=== PATIENT | male | born 1970 ===

== ENCOUNTER 2020-04-18 12:45 | Emergency (ER) | payer OTHER, SELFPAY ==
[2020-04-18 13:13] VITALS: BP 98/66; PULSE 99; RESP 20; TEMP 37.1; O2SAT 96; BMI 26.6
--- NOTE | 2020-04-18 14:59 | XR_ITS ---
EXAMINATION: XR CHEST CLINICAL INFORMATION: Cough, shortness of breath COMPARISON: Chest radiograph from 12/23/2007 TECHNIQUE: Frontal view of the chest was obtained. FINDINGS: There is no focal consolidation. There is no pneumothorax. The trachea is midline. The mediastinal silhouette is not enlarged. There is no pleural effusion. Osseous structures are intact. Soft tissues are unremarkable. XR/XR chest 1V IMPRESSION: No acute cardiopulmonary process.
--- NOTE | 2020-04-18 15:21 | ECG_ITS ---
Test Reason : COUGH Blood Pressure : / mmHG Vent. Rate : 083 BPM Atrial Rate : 083 BPM P-R Int : 136 ms QRS Dur : 078 ms QT Int : 364 ms P-R-T Axes : 063 050 048 degrees QTc Int : 427 ms Normal sinus rhythm Normal ECG When compared with ECG of 20-DEC-2007 06:46, No significant change was found Referred By: Tiara Prince Electronically Signed By:Angel Sr
--- NOTE | 2020-04-18 15:30 | ED_ITS ---
HPI - URI/Sore Throat General Chief Complaint: Upper Respiratory Symptoms Stated Complaint: cough,body aches Time Seen by Provider: 04/18/20 14:58 Source: patient Mode of arrival: ambulatory History of Present Illness HPI Narrative: 49-year-old male with past medical history of COPD, fibromyalgia, MS presenting to the ED complaining of dry cough, worsening SOB, body aches/myalgias, ear pain, decreased appetite, and dark colored urine x a couple days. Reports recently moved, and was moving a lot of heavy boxes/lifting and dark urination started during. Denies fever, chills, recent travel, LE edema, history of blood clots, sick contacts MD elicited complaint: cough Related Data Previous Rx's Medication Instructions Recorded albuterol sulfate 2 puff INHALATION Q4-6H PRN #6.7 g 04/18/20 benzonatate [Tessalon Perles] 100 mg PO TID PRN #10 cap 04/18/20 Allergies Allergy/AdvReac Type Severity Reaction Status Date / Time Shellfish Allergy Intermediate DIFFICULTY Uncoded 12/26/19 17:29 BREATHING Review of Systems Review of Systems: Constitutional: No Weight loss, No Fever, No Chills, + Fatigue, + Malaise ENT/Mouth: +Ear Pain, No Nasal Congestion, No Sinus Pain, No Hoarseness, No sore throat Cardiovascular: No Chest Pain, + SOB, No Dyspnea on Exertion, No Orthopnea, No Edema Respiratory: + Cough, No Sputum, No Wheezing, + Dyspnea Gastrointestinal: No Nausea, No Vomiting, No Diarrhea, No Constipation, No Ab dominal pain Genitourinary: No Dysuria, +dark urine, No Urinary Frequency, No Hematuria Musculoskeletal: No joint pain, + Myalgias, No Joint Swelling Skin: No Skin Lesions, No rash Neuro: No Weakness, No Numbness, No Paresthesias, + Headache Yes all other systems are reviewed and are negative [facility] Past Medical History Attestation statement: The following information was validated with the patient. Medical History (Updated 04/18/20 @ 17:58 by ARISTIDES Cagle) COPD (chronic obstructive pulmonary disease) Fibromyalgia Multiple sclerosis Social History Social History Alcohol intake: never Smoking Status: Never smoker Use of substances other than those prescribed or required for medical reasons: No Advance Directives: No Advance Directives Information Provided: No Physical Exam Vital Signs: Vital Signs: Last Vital Signs Temp 97.8 F 04/18/20 17:21 Pulse 83 04/18/20 17:21 Resp 18 04/18/20 17:21 BP 111/61 04/18/20 17:21 Pulse Ox 98 04/18/20 17:21 Body Mass Index 26.6 Const: General: cooperative and healthy appearing Orientation/consciousness: patient oriented x3 Limitations: no limitations HENMT: Head: Yes normal to inspection Ears: hearing grossly normal bilaterally General nose exam: Normal external nose present Face and sinus: Yes normal facial exam Eyes: General: appearance normal, both eyes and all related structures EOM: EOMs intact bilaterally Neck: Neck: Yes normal visual inspection Resp: Effort & Inspection: normal respiratory effort Auscultation: clear to auscultation bilaterally, no crackles, no rales, no rhonchi and no wheezes Cardio: Rate: regular rate Heart sounds: S1 normal heart sound present and S2 normal heart sound present GI: Inspection: Yes normal to inspection Palpation (GI): Soft to palpation, nontender, no guarding and not rigid Skin: Rashes: no rashes Wounds: no wounds Neuro: General: patient oriented x3 Gait exam (Neuro): Normal gait present Extrem: General: Yes normal to inspection Course Course Course Narrative: * Ferritin and CRP/LDH elevated * AST/ALT elevated which appears chronic * COVID-19 negative, CXR unremarkable * CPK unremarkable > patient is not in rhabdo * 1854-UA with ketones, no blood, negative Results discussed with patient including worrisome signs and symptoms and strict return precautions. He verbalized understanding feel safe for discharge home MDM - URI/Sore Throat MDM Narrative Medical decision making narrative: 49-year-old male with past medical history of COPD, fibromyalgia, MS presenting to the ED complaining of dry cough, worsening SOB, body aches/myalgias, ear pain, decreased appetite, and dark colored urine x a couple days. On exam VSS, NAD/nontoxic appearing, lungs CTA, abdomen soft/nontender. Concern for viral syndrome/COVID-19. Lower concern for bacterial pneumonia/ACS or PE. Concern for rhabdo with heavy lifting and discolored urine vs dehydration Plan: EKG, labs, CXR, UA, COVID-19 testing, IVF, reassess Lab Data Result diagrams: 04/18/20 15:56 04/18/20 15:56 Labs: Lab Results 04/18/20 04/18/20 04/18/20 Range/Units 15:56 15:56 15:56 WBC 5.3 (4.8-10.8) X10*3/uL RBC 5.31 (4.60-5.80) X10*6/uL Hgb 15.3 (14.0-18.0) g/dl Hct 46.0 (42-52) % MCV 86.6 (80-98) fL MCH 28.8 (27.0-33.0) pg MCHC 33.3 (31.0-36.0) g/dl RDW 13.7 (11.0-16.0) % Plt Count 162 (160-400) X10*3/uL MPV 11.0 (9.4-12.4) fL Immature Gran % (Auto) 0.4 (0.0-0.4) % Neut % (Auto) 42.8 L (45-73) % Lymph % (Auto) 45.0 H (20-40) % [place] % (Auto) 7.0 (2-11) % Eos % (Auto) 4.0 (0-4) % Baso % (Auto) 0.8 (0-2) % Lymph # (Auto) 2.4 (1.2-4.9) X10*3/uL [place] # (Auto) 0.4 (0.1-1.2) X10*3/uL Eos # (Auto) 0.2 (0.0-0.4) X10*3/uL Baso # (Auto) 0.0 (0.0-0.2) X10*3/uL Abs Immat Gran (auto) 0.02 (0.00-0.03) X10*3/uL Absolute Neuts (auto) 2.3 (2.0-8.3) X10*3/uL Absolute Nucleated RBC 0.000 (0.0-0.012) X10*3/uL Nucleated RBC % (auto) 0.0 (0.0-0.2) /100WBC Smear Tech's Comments VERIFIED Hold Blue Top Sodium 138 (135-145) mmol/L Potassium 3.6 (3.3-5.1) mmol/l Chloride 100 (96-108) mmol/L Carbon Dioxide 27 (22-29) mmol/L Anion Gap 15 (12-20) BUN 15 (9-16) mg/dL Creatinine 1.14 (0.5-1.4) mg/dL Estim Creat Clear Calc 80.1 Estimated GFR > 60 Random Glucose 98 (60-115) mg/dL Calcium 8.1 L (8.4-10.2) mg/dL Magnesium 2.3 (1.6-2.6) mg/dL Ferritin (20-250) ng/mL Total Bilirubin 0.9 (0.0-1.0) mg/dL Direct Bilirubin 0.7 H (0.0-0.5) mg/dL AST 354 H (5-37) U/L ALT 171 H (0-40) U/L Alkaline Phosphatase 324 H (39-117) U/L Lactate Dehydrogenase 517 H (118-273) U/L Total Creatine Kinase 51 (38-174) U/L C-Reactive Protein 1.64 H (< or = 0.50) mg/dL Total Protein 6.4 L (6.5-8.0) g/dL Albumin 3.8 (3.5-5.0) g/dL Procalcitonin ng/mL Urine Color Urine Appearance Urine pH (5.0-8.0) Ur Specific [place] (1.005-1.025) Urine Protein (NEG-TRACE) MG/DL Urine Glucose (UA) (NEG) MG/DL Urine Ketones (NEG) MG/DL Urine Blood (NEG) Urine Nitrite (NEG) Ur Leukocyte Esterase (NEG) COVID-19 (CHUCKY) Negative (Negative) COVID-19 Clin Com See Note 04/18/20 04/18/20 04/18/20 Range/Units 15:56 15:56 15:56 WBC (4.8-10.8) X10*3/uL RBC (4.60-5.80) X10*6/uL Hgb (14.0-18.0) g/dl Hct (42-52) % MCV (80-98) fL MCH (27.0-33.0) pg MCHC (31.0-36.0) g/dl RDW (11.0-16.0) % Plt Count (160-400) X10*3/uL MPV (9.4-12.4) fL Immature Gran % (Auto) (0.0-0.4) % Neut % (Auto) (45-73) % Lymph % (Auto) (20-40) % [place] % (Auto) (2-11) % Eos % (Auto) (0-4) % Baso % (Auto) (0-2) % Lymph # (Auto) (1.2-4.9) X10*3/uL [place] # (Auto) (0.1-1.2) X10*3/uL Eos # (Auto) (0.0-0.4) X10*3/uL Baso # (Auto) (0.0-0.2) X10*3/uL Abs Immat Gran (auto) (0.00-0.03) X10*3/uL Absolute Neuts (auto) (2.0-8.3) X10*3/uL Absolute Nucleated RBC (0.0-0.012) X10*3/uL Nucleated RBC % (auto) (0.0-0.2) /100WBC Smear Tech's Comments Hold Blue Top SEE NOTE Sodium (135-145) mmol/L Potassium (3.3-5.1) mmol/l Chloride (96-108) mmol/L Carbon Dioxide (22-29) mmol/L Anion Gap (12-20) BUN (9-16) mg/dL Creatinine (0.5-1.4) mg/dL Estim Creat Clear Calc Estimated GFR Random Glucose (60-115) mg/dL Calcium (8.4-10.2) mg/dL Magnesium (1.6-2.6) mg/dL Ferritin 572 H (20-250) ng/mL Total Bilirubin (0.0-1.0) mg/dL Direct Bilirubin (0.0-0.5) mg/dL AST (5-37) U/L ALT (0-40) U/L Alkaline Phosphatase (39-117) U/L Lactate Dehydrogenase (118-273) U/L Total Creatine Kinase (38-174) U/L C-Reactive Protein (< or = 0.50) mg/dL Total Protein (6.5-8.0) g/dL Albumin (3.5-5.0) g/dL Procalcitonin 0.39 ng/mL Urine Color Urine Appearance Urine pH (5.0-8.0) Ur Specific [place] (1.005-1.025) Urine Protein (NEG-TRACE) MG/DL Urine Glucose (UA) (NEG) MG/DL Urine Ketones (NEG) MG/DL Urine Blood (NEG) Urine Nitrite (NEG) Ur Leukocyte Esterase (NEG) COVID-19 (CHUCKY) (Negative) COVID-19 Clin Com 04/18/20 Range/Units 18:30 WBC (4.8-10.8) X10*3/uL RBC (4.60-5.80) X10*6/uL Hgb (14.0-18.0) g/dl Hct (42-52) % MCV (80-98) fL MCH (27.0-33.0) pg MCHC (31.0-36.0) g/dl RDW (11.0-16.0) % Plt Count (160-400) X10*3/uL MPV (9.4-12.4) fL Immature Gran % (Auto) (0.0-0.4) % Neut % (Auto) (45-73) % Lymph % (Auto) (20-40) % [place] % (Auto) (2-11) % Eos % (Auto) (0-4) % Baso % (Auto) (0-2) % Lymph # (Auto) (1.2-4.9) X10*3/uL [place] # (Auto) (0.1-1.2) X10*3/uL Eos # (Auto) (0.0-0.4) X10*3/uL Baso # (Auto) (0.0-0.2) X10*3/uL Abs Immat Gran (auto) (0.00-0.03) X10*3/uL Absolute Neuts (auto) (2.0-8.3) X10*3/uL Absolute Nucleated RBC (0.0-0.012) X10*3/uL Nucleated RBC % (auto) (0.0-0.2) /100WBC Smear Tech's Comments Hold Blue Top Sodium (135-145) mmol/L Potassium (3.3-5.1) mmol/l Chloride (96-108) mmol/L Carbon Dioxide (22-29) mmol/L Anion Gap (12-20) BUN (9-16) mg/dL Creatinine (0.5-1.4) mg/dL Estim Creat Clear Calc Estimated GFR Random Glucose (60-115) mg/dL Calcium (8.4-10.2) mg/dL Magnesium (1.6-2.6) mg/dL Ferritin (20-250) ng/mL Total Bilirubin (0.0-1.0) mg/dL Direct Bilirubin (0.0-0.5) mg/dL AST (5-37) U/L ALT (0-40) U/L Alkaline Phosphatase (39-117) U/L Lactate Dehydrogenase (118-273) U/L Total Creatine Kinase (38-174) U/L C-Reactive Protein (< or = 0.50) mg/dL Total Protein (6.5-8.0) g/dL Albumin (3.5-5.0) g/dL Procalcitonin ng/mL Urine Color YELLOW Urine Appearance CLEAR Urine pH 7.0 (5.0-8.0) Ur Specific [place] 1.010 (1.005-1.025) Urine Protein NEG (NEG-TRACE) MG/DL Urine Glucose (UA) NEG (NEG) MG/DL Urine Ketones 5 (NEG) MG/DL Urine Blood NEG (NEG) Urine Nitrite NEG (NEG) Ur Leukocyte Esterase NEG (NEG) COVID-19 (CHUCKY) (Negative) COVID-19 Clin Com Discharge Plan Discharge Clinical Impression: Upper respiratory infection Qualifiers: URI type: unspecified URI Qualified Code(s): J06.9 - Acute upper respiratory infection, unspecified Patient Disposition: Home, Self-Care Instructions: Viral Syndrome (ED) Additional Instructions: Your blood work and urine were reassuring today in the ED, however your are dehydrated you tested negative for COVID-19, however if your remain symptomatic I would continue to self isolating and consider getting retested Your chest x-ray was unremarkable Use albuterol inhaler at home as needed for shortness of breath Ventura Lockhart for cough Follow-up with your doctor if your symptoms persist or worsen, you have constant worsening chest pain, shortness of breath, or fever return to the ED Prescriptions: New albuterol sulfate 90 mcg/actuation HFA aerosol inhaler 2 puff inhalation Q4-6H PRN (Reason: shortness of breath or wheezing) Qty: 6.7 RF: 0 benzonatate [Tessalon Perles] 100 mg capsule 100 mg PO TID PRN (Reason: cough) Qty: 10 RF: 0 Referrals: Physician,No [Primary Care Provider] - 2 days
[2020-04-18] MEDS: 0.9 % Sodium Chloride 1,000 ML 999 ML IVCONT (15:57)
[2020-04-18 16:10] LABS: Basophils Percent Auto 0.8 % (0-2); Eosinophils Absolute Auto 0.2 X10*3/uL (0.0-0.4); Hemoglobin 15.3 g/dl (14.0-18.0); Imm Gran Abs Auto 0.02 X10*3/uL (0.00-0.03); Imm Gran Pct Auto 0.4 % (0.0-0.4); Lymphocytes Absolute Auto 2.4 X10*3/uL (1.2-4.9); MANUAL DIFF FLAG SCAN; Mean Corpuscular HGB Conc 33.3 g/dl (31.0-36.0); Mean Corpuscular Hemoglobin 28.8 pg (27.0-33.0); Mean Corpuscular Volume 86.6 fL (80-98); Monocytes Absolute Auto 0.4 X10*3/uL (0.1-1.2); Neutrophils Absolute Auto 2.3 X10*3/uL (2.0-8.3); Neutrophils Percent Auto 42.8 % (45-73); Platelet Count 162 X10*3/uL (160-400); Red Blood Count 5.31 X10*6/uL (4.60-5.80); Red Cell Distribution Width 13.7 % (11.0-16.0); SCAN SMEAR FLAG 1; White Blood Count 5.3 X10*3/uL (4.8-10.8)
[2020-04-18 16:27] LABS: SLIDE REVIEW VERIFIED
[2020-04-18 16:30] LABS: COVID-19 Test Negative (Negative)
[2020-04-18 16:35] LABS: Albumin Level 3.8 g/dL (3.5-5.0); Alkaline Phosphatase 324 U/L (39-117); Anion Gap 15 (12-20); Bilirubin Direct 0.7 mg/dL (0.0-0.5); Bilirubin Total 0.9 mg/dL (0.0-1.0); Blood Urea Nitrogen 15 mg/dL (9-16); C Reactive Protein 1.64 mg/dL (< or = 0.50); Calcium 8.1 mg/dL (8.4-10.2); Carbon Dioxide 27 mmol/L (22-29); Chloride 100 mmol/L (96-108); Creatinine Clr Calc Pharmacy 80.1; Estimated Glomerular Filt Rate > 60; Glucose Random 98 mg/dL (60-115); Lactate Dehydrogenase 517 U/L (118-273); Magnesium 2.3 mg/dL (1.6-2.6); Potassium 3.6 mmol/l (3.3-5.1); Sodium 138 mmol/L (135-145); Total Protein 6.4 g/dL (6.5-8.0)
[2020-04-18 16:48] LABS: Alanine Aminotransferase 171 U/L (0-40); Aspartate Amino Transferase 354 U/L (5-37)
[2020-04-18 16:51] LABS: Procalcitonin 0.39 ng/mL
[2020-04-18 16:54] LABS: Ferritin 572 ng/mL (20-250)
[2020-04-18 17:21] VITALS: BP 111/61; PULSE 83; RESP 18; TEMP 36.6; O2SAT 98
[2020-04-18 18:50] LABS: Glucose Urine UA NEG (NEG); Leukocyte Esterase Urine NEG (NEG); Nitrite Urine NEG (NEG); Urine Blood NEG (NEG); Urine Ketones 5 MG/DL (NEG); Urine Protein NEG (NEG-TRACE)
[2020-04-18 18:51] LABS: Appearance Urine CLEAR; Color Urine YELLOW
== END 2020-04-18 19:11 | disposition home or self-care (01) ==
PROVIDERS: Physician Assistant; Emergency Provider Emergency Medicine
DX: J06.9 Acute upper respiratory infection, unspecified (principal); Z20.828 Contact with and (suspected) exposure to other viral communicable diseases; R06.02 Shortness of breath; J44.9 Chronic obstructive pulmonary disease, unspecified; G35 Multiple sclerosis; Z79.899 Other long term (current) drug therapy
CPT/HCPCS: 36415; 71045; 80048; 80076; 81003; 82550; 82728; 83615; 83735; 84145; 85025; 86140; 87635; 93005; 96360; 99284

== ENCOUNTER 2022-08-19 22:09 | Emergency (ER) | payer OTHER, SELFPAY ==
[2022-08-19 22:21] VITALS: BP 113/82; PULSE 73; RESP 18; TEMP 36.6; O2SAT 96; BMI 25.8
[2022-08-19 23:33] LABS: IDNOW Serial# 6674DD1D; Strep A Nucleic Acid Negative (Negative)
[2022-08-19 23:37] LABS: COVID-19 Test Negative (Negative); IDNOW Serial# 9DB6401D
[2022-08-19 23:41] LABS: IDNOW Serial# 55D5AD1C; Influenza A Negative (Negative); Influenza B2 Negative (Negative)
--- NOTE | 2022-08-19 23:51 | ED.GENADULT ---
HPI - General Adult General Chief complaint: General Medical Stated complaint: Swelling in neck, pressure in ear Time Seen by Provider: 08/19/22 23:42 Source: patient Mode of arrival: ambulatory Limitations: no limitations History of Present Illness HPI narrative: 51-year-old male with PMH of mutiple head and neck injuries presents with fatigue, malaise, runny nose, left ear and left neck/back pain, and sore throat started 3 days ago and have been progressively worsening ever since then he tells me he feels like the left side of his neck is swollen and he has a swollen lymph node. Denies any sick contacts. Patient also reports recently his daughter's cats have been living with him and he is unsure if he is allergic to them. Patient also complaining of left-sided trapezius soreness for the past 3 days. Atraumatic. Denies fevers, chills, chest pain, shortness of breath, headache, vision changes, dizziness and weakness, abdominal pain and urinary symptoms Related Data Previous Rx's Medication Instructions Recorded albuterol sulfate 90 mcg/actuation 2 puff inhalation Q4-6H PRN 04/18/20 aerosol inhaler shortness of breath or wheezing #6.7 grams benzonatate 100 mg capsule 100 mg PO TID PRN cough #10 caps 04/18/20 (Ventura Lockhart) prednisone 20 mg tablet 40 mg PO DAILY 5 days #10 tabs 08/19/22 ketorolac 10 mg tablet 10 mg PO TID PRN pain 5 days #15 08/20/22 tabs loratadine 10 mg tablet 10 mg PO DAILY #30 tabs 08/20/22 Allergies Allergy/AdvReac Type Severity Reaction Status Date / Time Shellfish Allergy Intermediate DIFFICULTY Uncoded 12/26/19 17:29 BREATHING Review of Systems Review of Systems: Constitutional : No Weight loss, No Fever, No Chills, No Fatigue, No Malaise ENT/Mouth : + sore throat, No Rhinorrhea, + ear pain, Eyes: No Eye Pain, No Swelling, No Redness Cardiovascular : No Chest Pain, No SOB, No Dyspnea on Exertion, No Orthopnea, No Edema, No Palpitations Respiratory : No Cough, No Sputum, No Wheezing Gastrointestinal : No Nausea, No Vomiting, No Diarrhea, No Constipation, No abdominal Pain, No Hematochezia, No Melena Genitourinary : No Dysuria, No Urinary Frequency, No Hematuria, Musculoskeletal : No joint pain, No Myalgias, No Joint Swelling Skin : No Skin Lesions, No rash Neuro : No Weakness, No Numbness, No Dizziness, No Headache Psych : No Anxiety/Panic, No Depression All other systems reviewed and are negative Yes all other systems are reviewed and are negative [facility] Past Medical History Attestation statement: The following information was validated with the patient. Source: old records reviewed and nursing notes reviewed Medical History COPD (chronic obstructive pulmonary disease) Fibromyalgia Multiple sclerosis Social History Social History Alcohol intake: never Advance Directives: No Advance Directives Information Provided: No Physical Exam ED Vital Signs: Vital Signs - 24 hr 08/19/22 22:21 Temperature 98 F Pulse Rate 73 Respiratory Rate 18 Blood Pressure 113/82 Pulse Oximetry 96 Oxygen Delivery Method Room Air BMI result Body Mass Index 25.8 vss Appearance: Alert.? Oriented X3.? No acute distress.? Head: Normocephalic, atraumatic, no step-offs or deformities. Eyes: Pupils equal, round and reactive to light.? ENT: Pharynx normal, uvula midline, controlling secretions well and speaking in full sentences..??External ears normal, TMs normal bilaterally and EAC's normal. No pain with manipulation of external ears bilaterally. No mastoid tenderness. Neck: Normal inspection.? Neck supple.? Negative Kernig and Brudzinski. Patient does have discomfort with palpation over left-sided trapezius region CVS: Normal heart rate and rhythm.? Pulses normal.? Respiratory: No respiratory distress.? Breath sounds normal.? Abdomen: Soft and nontender.? Skin: Skin warm and dry.? Normal skin color.? Normal skin turgor.? Extremities: No lower extremity edema.? No calf ttp. 5/5 strength to bilateral upper and lower extremities Neuro: Oriented X 3.? No motor deficit.? No sensory deficit. CN 2-12 intact Course Reevaluation(s) Reevaluation #1: Patient's flu, COVID, strep negative. This is likely viral illness with possible allergies secondary to CT. Will discharge him with Toradol and prednisone for his muscle spasms. Will start him on loratadine for allergies. Educated patient on diagnosis and treatment plan, answered all question, patient verbalizes understanding. At this time patient will be discharged home, advised to return with new or worsening symptoms. Educated on worrisome signs and symptoms and when to return. At this time I feel comfortable discharge home. Time: 00:14 Medical Decision Making Medical Decision Making [facility] Narrative: [id number] 51-year-old male presents with fatigue, malaise, sore throat, left ear pain, rhinorrhea x2 days worsening. Physical exam Bilateral tympanic membranes pearly white, clear landmarks, no pain with manipulation of external ears. Uvula midline, pharynx within normal limits. No signs of abscess. Likely viral illness versus sinusitis. Other differentials include pharyngitis, influenza, COVID, allergies. Unlikely PE, epiglottitis, peritonsillar abscess, airway compromise, perforated tympanic membrane, malignant otitis. Left-sided trapezius discomfort likely secondary to muscle spasms.No cp, sob unlikley PE, acs,pna Plan viral testing Differential Diagnosis Differential Diagnoses: The differential diagnosis associated with the presentation includes Likely viral illness versus sinusitis. Other differentials include pharyngitis, influenza, COVID, allergies. Unlikely PE, epiglottitis, peritonsillar abscess, airway compromise, perforated tympanic membrane, malignant otitis. Left-sided trapezius discomfort likely secondary to muscle spasms. Admission/Observation Consideration of admission/observation: Escalation of care including admission/observation considered Lab Data [facility] Lab Attestation statement: I reviewed the patient's lab results. Labs: Lab Results 08/19/22 08/19/22 08/19/22 Range/Units 23:17 23:17 23:17 COVID-19 (CHUCKY) Negative (Negative) COVID-19 Clin Com See Note Influenza Type A (PAUL) Negative (Negative) Influenza Type B (PAUL) Negative (Negative) Influenza A & B Note See Note S. pyogenes GrpA PAUL Negative (Negative) Core Measures AMI core measures followed: Yes Measure exclusions: not indicated Critical Care Time Critical Care Time Critical Care Time: No Discharge Plan Discharge Clinical Impression: Viral illness, Trapezius muscle spasm Patient Disposition: Home, Self-Care Instructions: Viral Syndrome (ED) Additional Instructions: Take your medications as prescribed. If you were prescribed antibiotics today, it is important that you take your medication to their entirety, do not skip any doses, do not finish them early. Follow-up with your primary care provider this week. Return to the emergency department with new or worsening symptoms. Such as fevers, chills, chest pain, shortness of breath, nausea, vomiting, dizziness, headache, vision changes, lethargy In case of emergency call 911 Toradol has been sent to your pharmacy, you tolerated this well in the department. Please take this as prescribed do not take this with ibuprofen, or other NSAIDs, do not mix this with alcohol. Side effects of this medication including increased risk for bleeding and possible kidney injury. You may need to see Allergy and immunology if your symptoms continue Prescriptions: New prednisone 20 mg tablet 40 mg PO DAILY 5 Days Qty: 10 0RF loratadine 10 mg tablet 10 mg PO DAILY Qty: 30 0RF ketorolac 10 mg tablet 10 mg PO TID PRN (Reason: pain) 5 Days Qty: 15 0RF No Action albuterol sulfate 90 mcg/actuation HFA aerosol inhaler 2 puff inhalation Q4-6H PRN (Reason: shortness of breath or wheezing) Qty: 6.7 0RF benzonatate [Tessalon Perles] 100 mg capsule 100 mg PO TID PRN (Reason: cough) Qty: 10 0RF [facility]errals[facility] [Outside] - 2 days Jame Rai PA [Primary Care Provider] - 2 days Stand Alone Forms: Work/School Release
[2022-08-20] MEDS: Ketorolac Tromethamine 30 MG/ML VIAL IM (00:41)
[2022-08-20 00:46] VITALS: BP 116/74; PULSE 70; RESP 12; TEMP 37; O2SAT 98
== END 2022-08-20 00:48 | disposition home or self-care (01) ==
PROVIDERS: Emergency Provider Internal Medicine; PCP Physician Assistant Medical
DX: B34.9 Viral infection, unspecified (principal); M62.838 Other muscle spasm; Z20.822 Contact with and (suspected) exposure to COVID-19
CPT/HCPCS: 87502; 87635; 87651; 96372; 99284; J1885

== ENCOUNTER 2023-04-21 18:14 | Inpatient (IN) | payer OTHER, SELFPAY ==
--- NOTE | ~2023-04-21 | XR_ITS ---
EXAMINATION: XR HAND, LEFT CLINICAL INFORMATION: Wound, pain, swelling, foreign body. COMPARISON: Radiograph left hand 03/14/2016. TECHNIQUE: PA, lateral, and oblique views of the left hand. FINDINGS: There is a 2 mm radiodensity projecting over the soft tissues adjacent to the middle phalanx of the second digit. Chronic appearing deformity at the tuft of the distal phalanx of the fourth digit. No acute fracture or subluxation. Carpal rows are maintained. XR/XR hand LT 2V IMPRESSION: No acute fracture or subluxation. 2 mm radiodensity projecting over the soft tissues adjacent to the middle phalanx of the second digit most suggestive of a foreign body. Chronic deformity of the distal phalanx of the fourth digit.
--- NOTE | 2023-04-21 19:00 | ED_ITS ---
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 He denies hx of MRSA. He cannot move the fingers well but notes he has issues with the hand to begin with like trigger finger in 5th finger, 3rd/4th digits cannot extend fully from prior tendon injury. 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) Associated symptoms: fever, chills and nausea Treatments prior to arrival: bandages Related Data Previous Rx's Medication Instructions Recorded albuterol sulfate 90 mcg/actuation 2 puff inhalation Q4-6H PRN 04/18/20 aerosol inhaler shortness of breath or wheezing #6.7 grams benzonatate 100 mg capsule 100 mg PO TID PRN cough #10 caps 04/18/20 (Ventura Lockhart) prednisone 20 mg tablet 40 mg (2 x 20 mg) PO DAILY 5 days 08/19/22 #10 tabs ketorolac 10 mg tablet 10 mg PO TID PRN pain 5 days #15 08/20/22 tabs loratadine 10 mg tablet 10 mg PO DAILY #30 tabs 08/20/22 Allergies Allergy/AdvReac Type Severity Reaction Status Date / Time Shellfish Allergy Intermediate DIFFICULTY Uncoded 04/21/23 19:00 BREATHING Review of Systems 2 Review of Systems: Constitutional : pos Fever, pos Chills ENT/Mouth : No sore throat, No Rhinorrhea Eyes: No Eye Pain, No Swelling, No Redness Cardiovascular : No Chest Pain, No SOB Respiratory : No Cough, No Sputum Gastrointestinal : pos Nausea, No Vomiting, No Diarrhea, No abdominal Pain Genitourinary : No Dysuria, No Hematuria Musculoskeletal : pos joint pain, No Myalgias, No Joint Swelling Skin : pos Skin Lesions, positive skin rash Neuro : No Weakness, No Numbness, No Headache Psych : No Anxiety, No Depression Heme/Lymph: No Bruising, No Bleeding,No Lymphadenopathy Endocrine : No Polyuria, No Polydipsia All other systems reviewed and are negative [facility] Past Medical History Attestation statement: The following information was validated with the patient. Onset Date is defined in the Problem List Problems that require an onset date and time if occurred within 24 hrs of arrival to the ED Aortic Dissection and Rupture; Neurologic impairment; Cardiopulmonary Arrest; Endotracheal Intubation; Insertion or Replacement of Mechanical Circulatory Assist Device Medical History Multiple sclerosis Fibromyalgia COPD (chronic obstructive pulmonary disease) Social History Social History Alcohol intake: never Smoked in Last 30 Days: No Use of substances other than those prescribed or required for medical reasons: Yes Substance Use Type: Crack/Cocaine and Marijuana Advance Directives: No Advance Directives Information Provided: No Physical Exam 2 Vital Signs: Vital Signs: Last Vital Signs Temp 98.1 F 04/21/23 21:26 Pulse 72 04/21/23 21:26 Resp 18 04/21/23 21:26 BP 113/57 L 04/21/23 21:26 Pulse Ox 99 04/21/23 21:26 O2 Del Method Room Air 04/21/23 21:26 BMI result Body Mass Index 25.8 Appearance: Alert. Oriented X3. No acute distress. Eyes: Pupils equal, round and reactive to light. ENT: Pharynx normal. Neck: Normal inspection. Neck supple. CVS: Normal heart rate and rhythm. Pulses normal. Respiratory: No respiratory distress. Breath sounds normal. Abdomen: Soft and nontender. Skin: Skin warm and dry. Normal skin color. Normal skin turgor. Extremities: No lower extremity edema. L hand moderate swelling erythema/warmth to dorsum of hand - will not range his fingers due to pain there is no swelling or erythema noted on the palm or palmar aspects of the finger - distal NV intact, erythema streaks to mid forearm, no crepitus or fluctuance felt Neuro: Oriented X 3. No motor deficit. No sensory deficit. Course Course Course Narrative: This is an RME: Additional HPI, ROS, PE not included below will be deferred to primary provider. Patient is a 52-year-old male who presents emergency department for evaluation of concern for infection to the left dorsal hand he has a scabbed wound near the base of the thumb. He reports the initial wound to the hand was made from a piece of wood while he was ripping up a floor 2 nights ago. Progressive worsening since yesterday, states he is unable to make a fist. Significant pain. Referred from urgent care to ED for further evaluation. Also reports nausea, cough, fever chills. Plan: Serum labs, viral testing, XR Medications Administered Discontinued Medications Generic Name Dose Route Start Last Admin Trade Name Freq PRN Reason Stop Dose Admin Piperacillin Sod/Tazobactam 50 mls @ 100 mls/hr 04/21/23 21:54 04/21/23 22:18 Sod 3.375 gm/ Sodium Chloride IV 04/21/23 22:23 100 mls/hr ONCE ONE Administration Medical Decision Making Medical Decision Making MDM Narrative: 52 yo male with PMH of COPD here with c/o L hand cellulitis / pain after pressure treated wound injury which was abrasion vs puncture at this time he cannot fully range the fingers due to pain but there is no extension onto the palmar surface to suggest flexor tenosynovisit. FB on xray responds to old injury. At this time given hand and degree of swelling and extension onto forearm will start on IV abx consult orthopedics and admit for IV antibiotics Differential Diagnosis Differential Diagnoses: The differential diagnosis associated with the presentation includes cellulitis, abscess Admission/Observation Consideration of admission/observation: Escalation of care including admission/observation considered admit for IV abx Consult Healthcare Provider Management of the patient was discussed with: Hospitalist (will admit) and Home Improvement Advisor (orthopedics aware does not feel it is flexor tenosynovitis) Lab Data [facility] Lab Attestation statement: I reviewed the patient's lab results. 04/21/23 19:59 04/21/23 19:59 Labs: Lab Results 04/21/23 04/21/23 Range/Units 19:59 20:00 WBC 8.4 (4.8-10.8) X10*3/uL RBC 5.02 (4.60-5.80) X10*6/uL Hgb 14.8 (14.0-18.0) g/dl Hct 43.8 (42.0-52.0) % MCV 87.3 (80.0-98.0) fL MCH 29.5 (27.0-33.0) pg MCHC 33.8 (31.0-36.0) g/dl RDW 13.0 (11.0-16.0) % Plt Count 229 (160-400) X10*3/uL MPV 10.2 (9.4-12.4) fL Immature Gran % (Auto) 0.2 (0.0-0.4) % Neut % (Auto) 69.1 (45-73) % Lymph % (Auto) 22.0 (20-40) % [place] % (Auto) 6.4 (2-11) % Eos % (Auto) 1.9 (0-4) % Baso % (Auto) 0.4 (0-2) % Lymph # (Auto) 1.9 (1.2-4.9) X10*3/uL [place] # (Auto) 0.5 (0.1-1.2) X10*3/uL Eos # (Auto) 0.2 (0.0-0.4) X10*3/uL Baso # (Auto) 0.0 (0.0-0.2) X10*3/uL Abs Immat Gran (auto) 0.02 (0.00-0.03) X10*3/uL Absolute Neuts (auto) 5.8 (2.0-8.3) x10*3/uL Absolute Nucleated RBC 0.000 (0.0-0.012) X10*3/uL Nucleated RBC % (auto) 0.0 (0.0-0.2) /100WBC Sodium 140 (135-145) mmol/L Potassium 3.8 (3.3-5.1) mmol/L Chloride 106 (96-108) mmol/L Carbon Dioxide 24 (22-29) mmol/L Anion Gap 14 (12-20) BUN 16 (9-16) mg/dL Creatinine 0.83 (0.5-1.4) mg/dL Estim Creat Clear Calc 106.4 Estimated GFR > 60 Random Glucose 98 (60-115) mg/dL Lactic Acid 0.8 (0.5-2.0) mmol/L Calcium 10.4 H D (8.4-10.2) mg/dL Total Bilirubin 0.5 (0.0-1.0) mg/dL AST 16 (5-37) U/L ALT 11 (0-40) U/L Alkaline Phosphatase 62 (39-117) U/L Total Protein 7.5 (6.5-8.0) g/dL Albumin 4.5 (3.5-5.0) g/dL COVID-19 (CHUCKY) Negative (Negative) COVID-19 Clin Com See Note Influenza Type A (PAUL) Negative (Negative) Influenza Type B (PAUL) Negative (Negative) Influenza A & B Note See Note Discharge Plan Discharge Clinical Impression: Cellulitis of hand, left Patient Disposition: Admitted As Inpatient Prescriptions: No Action albuterol sulfate 90 mcg/actuation HFA aerosol inhaler 2 puff inhalation Q4-6H PRN (Reason: shortness of breath or wheezing) Qty: 6.7 0RF benzonatate [Tessalon Perles] 100 mg capsule 100 mg PO TID PRN (Reason: cough) Qty: 10 0RF prednisone 20 mg tablet 40 mg PO DAILY 5 Days Qty: 10 0RF loratadine 10 mg tablet 10 mg PO DAILY Qty: 30 0RF ketorolac 10 mg tablet 10 mg PO TID PRN (Reason: pain) 5 Days Qty: 15 0RF
[2023-04-21 19:01] VITALS: BP 129/94; PULSE 58; RESP 16; TEMP 36.8; O2SAT 97; BMI 25.8
[2023-04-21 20:02] LABS: MANUAL DIFF FLAG NO
[2023-04-21 20:04] LABS: Basophils Percent Auto 0.4 % (0-2); Eosinophils Absolute Auto 0.2 X10*3/uL (0.0-0.4); Eosinophils Percent Auto 1.9 % (0-4); Hematocrit 43.8 % (42.0-52.0); Hemoglobin 14.8 g/dl (14.0-18.0); Imm Gran Abs Auto 0.02 X10*3/uL (0.00-0.03); Imm Gran Pct Auto 0.2 % (0.0-0.4); Lymphocytes Absolute Auto 1.9 X10*3/uL (1.2-4.9); Mean Corpuscular HGB Conc 33.8 g/dl (31.0-36.0); Mean Corpuscular Hemoglobin 29.5 pg (27.0-33.0); Mean Corpuscular Volume 87.3 fL (80.0-98.0); Mean Platelet Volume 10.2 fL (9.4-12.4); Monocytes Absolute Auto 0.5 X10*3/uL (0.1-1.2); Monocytes Percent Auto 6.4 % (2-11); Neutrophils Absolute Auto 5.8 x10*3/uL (2.0-8.3); Neutrophils Percent Auto 69.1 % (45-73); Platelet Count 229 X10*3/uL (160-400); Red Blood Count 5.02 X10*6/uL (4.60-5.80); White Blood Count 8.4 X10*3/uL (4.8-10.8)
[2023-04-21 20:13] LABS: Lactic Acid 0.8 mmol/L (0.5-2.0)
[2023-04-21 20:18] LABS: Alanine Aminotransferase 11 U/L (0-40); Albumin Level 4.5 g/dL (3.5-5.0); Alkaline Phosphatase 62 U/L (39-117); Anion Gap 14 (12-20); Aspartate Amino Transferase 16 U/L (5-37); Bilirubin Total 0.5 mg/dL (0.0-1.0); Blood Urea Nitrogen 16 mg/dL (9-16); Calcium 10.4 mg/dL (8.4-10.2); Carbon Dioxide 24 mmol/L (22-29); Chloride 106 mmol/L (96-108); Creatinine Clr Calc Pharmacy 106.4; Estimated Glomerular Filt Rate > 60; Glucose Random 98 mg/dL (60-115); Potassium 3.8 mmol/L (3.3-5.1); Sodium 140 mmol/L (135-145); Total Protein 7.5 g/dL (6.5-8.0)
[2023-04-21 20:26] LABS: IDNOW Serial# 08D9AD1C
[2023-04-21 20:27] LABS: COVID-19 Test Negative (Negative)
[2023-04-21 20:31] LABS: IDNOW Serial# 9DB6401D; Influenza A Negative (Negative); Influenza B2 Negative (Negative)
[2023-04-21 21:26] VITALS: BP 113/57; PULSE 72; RESP 18; TEMP 36.7; O2SAT 99
--- NOTE | 2023-04-21 21:48 | PC.NURSE ---
Pt ca&ox4, no signs of distress. Pt on the cell phone. Pt reports 01/17 left hand pain onset of 04/19/23 after getting a piece of wood stuck in his hand from jeet. Pt left hand swollen, inflammed, and painful. Pt reports chills and some nausea but denies vomiting. Pt in with provider. Plan of care ongoing.
[2023-04-21] MEDS: Piperacillin Sodium/Tazobactam 3.375 GM in 0.9 % Sodium Chloride 50 ML IV (22:18)
--- NOTE | 2023-04-21 22:25 | PC.NURSE ---
IV line placed and abx started. Pt requested and given food and drink Provider ok with pt eating. Plan of care ongoing.
[2023-04-21] MEDS: Diphth,Pertus(ACell),Tet Adult 0.5 ML SYRINGE IM (22:48)
--- NOTE | 2023-04-21 22:57 | PC.NURSE ---
Pt medicated per jun. Plan of care ongoing.
[2023-04-22 00:20] VITALS: BP 105/63; PULSE 77; RESP 16; TEMP 36.7; O2SAT 98
[2023-04-22] MEDS: Amitriptyline HCl 25 MG TABLET PO ×2 (00:46→22:08)
[2023-04-22] MEDS: 0.9 % Sodium Chloride 1,000 ML 100 ML IVCONT ×2 (00:48→12:14)
--- NOTE | 2023-04-22 00:56 | PC.NURSE ---
Pt medicated per jun. Plan of care ongoing.
--- NOTE | 2023-04-22 02:37 | PM.IMHP ---
History of Present Illness Date of Service: 04/21/23 Attending physician on admission: Shakira Cox Chief Complaint: Left hand swelling and pain. Ethan Valladares is a 52 years old man with past medical history significant for COPD-on home oxygen, GERD and multiple sclerosis presents to the emergency department complaining of left hand edema and pain after sustaining a deep abrasion while working with wood. 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 He noted that he has having swelling over the last couple of days. He denied any associated symptoms such as headache, fever, chills, dizziness or palpitations. He did not report any acute cardiopulmonary or genitourinary symptoms. The patient has underlying/chronic issues to the 3rd, 4th and 5th fingers including prior tendon injuries and trigger finger. Patient admits occasional use of cocaine. He denies tobacco smoking or alcohol abuse. In the ED, he was found to have normal vital signs. Blood workup included CBC and CMP are unremarkable. COVID-19 a and influenza tests are negative. He underwent a left hand x-ray that showed no acute fracture or subluxation. It did show a 2 mm radiodensity projecting over the soft tissue adjacent to the middle phalanx of the 2nd digit most suggestive of a foreign body; and chronic deformity of the distal phalanx of the 4th digit. ED tx: Zosyn 3.375 g IV, vancomycin 2 g IV and Tdap vaccination. According to ED case has been discussed with orthopedic surgery service, Pauline Goss. Recommended only antibiotics for now and felt patient needs no OR. [facility] Medical History Multiple sclerosis Fibromyalgia COPD (chronic obstructive pulmonary disease) Social History Household Members Other:: children Housing: Apartment Unable to assess alcohol history related to: Unable to respond Alcohol intake: never Patient Tobacco Use Status: Never used Tobacco Substance Use Type: Marijuana Meds Allergies Allergy/AdvReac Type Severity Reaction Status Date / Time Shellfish Allergy Intermediate DIFFICULTY Uncoded 04/21/23 19:00 BREATHING Active Medications: Current Medications Acetaminophen (Acetaminophen 325 Mg Tablet) 975 mg PO Q6H PRN PRN Reason: Pain, Mild (Pain Scale 1-3) Albuterol Sulfate (Albuterol Sulfate 90 Mcg 8 Gm Inhaler) 2 puff INHALE Q4H PRN PRN Reason: Shortness of Breath/Wheezing Amitriptyline HCl (Amitriptyline Hcl 25 Mg Tablet) 25 mg PO BEDTIME [facility] Last Admin: 04/22/23 00:46 Dose: 25 mg Sodium Chloride (Ns) 1,000 mls @ 100 mls/hr IVCONT .Q10H [facility] Last Admin: 04/22/23 00:48 Dose: 100 mls/hr Piperacillin Sod/Tazobactam (Sod 3.375 gm/ Sodium Chloride) 50 mls @ 100 mls/hr IV Q6H [facility] Ibuprofen (Ibuprofen 400 Mg Tablet) 400 mg PO Q6H PRN PRN Reason: Pain, Moderate(Pain Scale 4-6) Omeprazole (Omeprazole 40 Mg Capsule.Dr) 40 mg PO ONCE [facility] Pharmacy Consult (Consult Rx Vancomycin Dosing) 1 each MISCELLANE DAILY PRN PRN Reason: Consult order Pregabalin (Pregabalin 100 Mg Capsule) 100 mg PO BID [facility] Sodium Chloride (0.9 % Sodium Chloride Flush 3 Ml Syringe) 3 ml IVFLUSH QSHIFT [facility] Last Admin: 04/22/23 00:42 Dose: Not Given Physical Exam Vital Signs and Narrative: Vital Signs: Last Vital Signs Temp 98.0 F 04/22/23 00:20 Pulse 77 04/22/23 00:20 Resp 16 04/22/23 00:20 BP 105/63 04/22/23 00:20 Pulse Ox 98 04/22/23 00:20 O2 Del Method Room Air 04/22/23 00:20 BMI result Body Mass Index 25.8 Constitutional - Awake and Alert, No apparent distress HEENT - atraumatic normocephalic. Cardiovascular - S1S2, RRR, No edema. Distal pulses intact. Respiratory - Normal lung expansion, Normal respiratory effort, No respiratory distress, CTA bilaterally Gastrointestinal - NT / ND; +BS; No rebound or guarding Extremities - Left hand: Dorsum: Edema and erythema. There is 1 cm wound with scab. No discharges. Tenderness to palpation. 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 And some limitation of distention of the fingers. Please refer to ED notes for pictures. Musculoskeletal - Normal inspection, normal ROM Skin - Warm/Dry Neurological - Alert & oriented x3. Psychological - Appropriate affect Results Labs 04/21/23 19:59 04/21/23 19:59 Labs: Laboratory Results - last 24 hr 04/21/23 04/21/23 19:59 20:00 MCV 87.3 MCH 29.5 MCHC 33.8 RDW 13.0 Plt Count 229 MPV 10.2 Immature Gran % (Auto) 0.2 Neut % (Auto) 69.1 Lymph % (Auto) 22.0 [place] % (Auto) 6.4 Eos % (Auto) 1.9 Baso % (Auto) 0.4 Lymph # (Auto) 1.9 [place] # (Auto) 0.5 Eos # (Auto) 0.2 Baso # (Auto) 0.0 Abs Immat Gran (auto) 0.02 Absolute Neuts (auto) 5.8 Absolute Nucleated RBC 0.000 Nucleated RBC % (auto) 0.0 Anion Gap 14 Estim Creat Clear Calc 106.4 Estimated GFR > 60 Random Glucose 98 Lactic Acid 0.8 Calcium 10.4 H D Total Bilirubin 0.5 AST 16 ALT 11 Alkaline Phosphatase 62 Total Protein 7.5 Albumin 4.5 COVID-19 (CHUCKY) Negative COVID-19 Clin Com See Note Influenza Type A (PAUL) Negative Influenza Type B (PAUL) Negative Influenza A & B Note See Note Imaging Radiologist's Impressions: Impressions Hand X-Ray 04/21/23 19:19 IMPRESSION: No acute fracture or subluxation. 2 mm radiodensity projecting over the soft tissues adjacent to the middle phalanx of the second digit most suggestive of a foreign body. Chronic deformity of the distal phalanx of the fourth digit. Assessment and Plan (1) Cellulitis of hand, left: Status: Acute (2) Hand pain: Qualifiers: Laterality: left Qualified Code(s): M79.642 - Pain in left hand Status: Acute Plan Ethan Valladares is a 52 years old man with past medical history significant for COPD-on home oxygen, GERD and multiple sclerosis Left hand cellulitis ?Tenosynovitis. Admit to hospitalist service. Continue empiric IV antibiotic therapy with vancomycin and Zosyn. Blood cultures were obtained-will follow results. Appreciate Orthopedic surgery input. Chronic obstructive pulmonary disease. No exacerbation. Albuterol as needed. GERD. Continue omeprazole. Fibromyalgia. Continue amitriptyline and pregabalin. Second phalanx foreign body, old. History of multiple sclerosis. Followup as an outpatient. DVT prophylaxis: No needed, low risk. Patient is ambulating well. Code status: Full. Patient will need hospitalization for least 2 midnight for left hand cellulitis. She will need therapy with IV antibiotics and evaluation by surgery. Quality Stroke Does the patient have a stroke diagnosis?: No VTE Prior VTE?: No VTE Risk Level:: Medical - low VTE Device Contraindication: Treatment Not Indicated VTE Drug Contraindication: Treatment Not Indicated
[2023-04-22 02:49] VITALS: BP 110/64; PULSE 61; RESP 18; TEMP 36.9; O2SAT 97
[2023-04-22] MEDS: Piperacillin Sodium/Tazobactam 3.375 GM in 0.9 % Sodium Chloride 50 ML IV ×4 (03:02→23:24)
[2023-04-22 06:53] VITALS: BP 100/60; PULSE 58; RESP 16; TEMP 36.6; O2SAT 97
[2023-04-22 08:31] LABS: Estimated Glomerular Filt Rate > 60
--- NOTE | 2023-04-22 08:34 | PHA.MEDREC ---
Pharmacy Consult ? Medication Reconciliation Pharmacy has completed the medication reconciliation. Spoke to pt to confirm meds.
--- NOTE | 2023-04-22 09:00 | PHA.PROG ---
Admission Date/Time: April 21, 2023 23:19 Indication: SSTI Weight in k.379 kg Adjusted body weight in K KG [place] body weight in K.7 KG Obesity Dosing Indication % IBW: Serum Creatinine - Last 168 Hours 04/21/23 04/22/23 19:59 08:06 Creatinine 0.83 0.94 Estimated CrCl and GFR - Last 168 Hours 04/21/23 04/22/23 19:59 08:06 Estim Creat Clear Calc 106.4 94.0 Estimated GFR > 60 > 60 Vancomycin Loading Dose: 2000 MG Current Vancomycin Dosing Regimen: 1000 MG Q12H Vancomycin Monitoring using AUC goal of 400 - 600 range with trough as surrogate marker: PREDICTED AUC 490 Date and Time for next Vancomycin Level to be drawn: TROUGH 04/23/23 @0800 Pharmacist Comments on Vancomycin Plan: Vancomycin dosing will take advantage of [employer]idel as a clinical decision support tool that uses Bayesian modeling to calculate individual patient's pharmacokinetic parameters and forecast the patient's drug concentration time course with the target goal AUC 24 range of 400 - 600 mg/L/hr.
[2023-04-22] MEDS: Acetaminophen 325 MG TABLET 975 MG PO ×2 (09:36→16:09)
[2023-04-22] MEDS: Pregabalin 100 MG CAPSULE PO ×2 (09:36→22:07)
[2023-04-22] MEDS: Omeprazole 20 MG CAPSULE.DR PO (09:36)
[2023-04-22] MEDS: Ibuprofen 400 MG TABLET PO ×2 (09:36→23:31)
[2023-04-22] MEDS: vancomycin HCL 1,000 MG in 0.9 % Sodium Chloride 250 ML 270 MG IV ×2 (10:52→22:09)
--- NOTE | 2023-04-22 10:54 | P.PNIM_ITS ---
Subjective Subjective Date of Service: 04/22/23 Interval History: Seen and evaluated this morning complaining of pain in his had swelling mildly down no other overnight events Review of Systems Review of Systems: Yes all other systems are reviewed and are negative Physical Exam 2 Vital Signs: Vital Signs: Last Vital Signs Temp 98 F 04/22/23 06:53 Pulse 58 04/22/23 06:53 Resp 16 04/22/23 06:53 BP 100/60 04/22/23 06:53 Pulse Ox 97 04/22/23 06:53 O2 Del Method Room Air 04/22/23 06:53 BMI result Body Mass Index 25.8 Const: Other: Constitutional : Awake, interactive, not in distress Neck : Normal inspection, Supple Cardiovascular : RRR, no JVP, no lower extremity edema Respiratory : good bilateral air entry, no crackles, wheezes or rhonchi Gastrointestinal: soft, lax, Normal bowel sounds, Non tender Skin : Warm, Dry, left hand with significant dorsal swelling and erythma up to wrist area with mild tenderness and area of foreign body entry, no drainage Neurological : Alert & oriented x3, No focal deficit , Objective Data Active Medications Acetaminophen (Acetaminophen 325 Mg Tablet) 975 mg PO Q6H PRN PRN Reason: Pain, Mild (Pain Scale 1-3) Last Admin: 04/22/23 09:36 Dose: 975 mg Documented By: JENNIFER Albuterol Sulfate (Albuterol Sulfate 90 Mcg 8 Gm Inhaler) 2 puff INHALE Q4H PRN PRN Reason: Shortness of Breath/Wheezing Amitriptyline HCl (Amitriptyline Hcl 25 Mg Tablet) 25 mg PO BEDTIME [facility] Last Admin: 04/22/23 00:46 Dose: 25 mg Documented By: MITCHELL Amitriptyline HCl (Amitriptyline Hcl 10 Mg Tablet) 10 mg PO BEDTIME PRN PRN Reason: Migraine Headache Hydroxyzine HCl (Hydroxyzine Hcl 50 Mg Tablet) 50 mg PO BEDTIME PRN PRN Reason: Sleep Sodium Chloride (Ns) 1,000 mls @ 100 mls/hr IVCONT .Q10H [facility] Last Admin: 04/22/23 07:35 Dose: Not Given Documented By: JENNIFER Non-Admin Reason: IV Running Piperacillin Sod/Tazobactam (Sod 3.375 gm/ Sodium Chloride) 50 mls @ 100 mls/hr IV Q6H [facility] Last Infusion: 04/22/23 10:48 Dose: Infused Documented By: JENNIFER Vancomycin HCl 1,000 mg/ (Sodium Chloride) 270 mls @ 270 mls/hr IV Q12H [facility] Last Admin: 04/22/23 10:52 Dose: 270 mls/hr Documented By: JENNIFER Ibuprofen (Ibuprofen 400 Mg Tablet) 400 mg PO Q6H PRN PRN Reason: Pain, Moderate(Pain Scale 4-6) Last Admin: 04/22/23 09:36 Dose: 400 mg Documented By: JENNIFER Omeprazole (Omeprazole 40 Mg Capsule.) 40 mg PO ONCE [facility] Omeprazole (Omeprazole 20 Mg Capsule.) 20 mg PO DAILY@0630 [facility] Last Admin: 04/22/23 09:36 Dose: 20 mg Documented By: JENNIFER Pharmacy Consult (Consult Rx Vancomycin Dosing) 1 each MISCELLANE DAILY PRN PRN Reason: Consult order Pregabalin (Pregabalin 100 Mg Capsule) 100 mg PO BID [facility] Last Admin: 04/22/23 09:36 Dose: 100 mg Documented By: JENNIFER Sodium Chloride (0.9 % Sodium Chloride Flush 3 Ml Syringe) 3 ml IVFLUSH QSHIFT [facility] Last Admin: 04/22/23 07:21 Dose: Not Given Documented By: JENNIFER Non-Admin Reason: IV Running Labs 04/21/23 19:59 04/22/23 08:06 Labs: Laboratory Results - last 24 hr 04/21/23 04/21/23 04/22/23 19:59 20:00 08:06 MCV 87.3 MCH 29.5 MCHC 33.8 RDW 13.0 Plt Count 229 MPV 10.2 Immature Gran % (Auto) 0.2 Neut % (Auto) 69.1 Lymph % (Auto) 22.0 [place] % (Auto) 6.4 Eos % (Auto) 1.9 Baso % (Auto) 0.4 Lymph # (Auto) 1.9 [place] # (Auto) 0.5 Eos # (Auto) 0.2 Baso # (Auto) 0.0 Abs Immat Gran (auto) 0.02 Absolute Neuts (auto) 5.8 Absolute Nucleated RBC 0.000 Nucleated RBC % (auto) 0.0 Hold Purple Top SEE NOTE Anion Gap 14 Estim Creat Clear Calc 106.4 94.0 Estimated GFR > 60 > 60 Random Glucose 98 Lactic Acid 0.8 Calcium 10.4 H D Total Bilirubin 0.5 AST 16 ALT 11 Alkaline Phosphatase 62 Total Protein 7.5 Albumin 4.5 COVID-19 (CHUCKY) Negative COVID-19 Clin Com See Note Influenza Type A (PAUL) Negative Influenza Type B (PAUL) Negative Influenza A & B Note See Note Assessment and Plan (1) Cellulitis of hand, left: Status: Acute Plan Ethan Valladares is a 52 years old man with past medical history significant for COPD-on home oxygen, GERD and multiple sclerosis # Left hand cellulitis 2/2 foreign body injury risk of Tenosynovitis Pending cultures Continue Vancomycin and Zosyn Consult orthopedic surgery wash hand with soap and water # Chronic obstructive pulmonary disease. No exacerbation. Albuterol as needed. # GERD. Continue omeprazole. # Fibromyalgia. Continue amitriptyline and pregabalin. # Second phalanx foreign body, old. # History of multiple sclerosis. Followup as an outpatient. DVT prophylaxis low risk. Patient is ambulating well. Code status: Full. Patient will need hospitalization overnight for left hand cellulitis. She will need therapy with IV antibiotics and evaluation by surgery. Quality Stroke Does the patient have a stroke diagnosis?: No VTE Prior VTE?: No VTE Risk Level:: Medical - low VTE Device Contraindication: Treatment Not Indicated VTE Drug Contraindication: Treatment Not Indicated
--- NOTE | 2023-04-22 11:31 | P.CONOP_ITS ---
History of Present Illness HPI Consult date: 04/22/23 Chief complaint: Left hand cellulitis Narrative: Ethan Valladares is a 52 year old man with past medical history significant for COPD-on home oxygen, GERD and multiple sclerosis presents to the emergency department complaining of left hand edema and pain after sustaining a deep abrasion from plywood. He noted a gradual increase in swelling over the last few days. The patient has underlying/chronic issues to the 3rd, 4th and 5th fingers including prior tendon injuries and trigger finger. As well as metal foreign body in the index finger unrelated to this injury. Patient admits occasional use of cocaine. He denies tobacco smoking or alcohol abuse. Review of Systems 2 Review of Systems: Yes all other systems are reviewed and are negative PMFSH Past Medical History Medical History Multiple sclerosis Fibromyalgia COPD (chronic obstructive pulmonary disease) Social History Social History Household Members Other:: children Housing: Apartment Unable to assess alcohol history related to: Unable to respond Alcohol intake: never Patient Tobacco Use Status: Never used Tobacco Substance Use Type: Marijuana service: No Meds Allergies Allergy/AdvReac Type Severity Reaction Status Date / Time Shellfish Allergy Intermediate DIFFICULTY Uncoded 04/21/23 19:00 BREATHING Active Medications: Current Medications Acetaminophen (Acetaminophen 325 Mg Tablet) 975 mg PO Q6H PRN PRN Reason: Pain, Mild (Pain Scale 1-3) Last Admin: 04/22/23 09:36 Dose: 975 mg Albuterol Sulfate (Albuterol Sulfate 90 Mcg 8 Gm Inhaler) 2 puff INHALE Q4H PRN PRN Reason: Shortness of Breath/Wheezing Amitriptyline HCl (Amitriptyline Hcl 25 Mg Tablet) 25 mg PO BEDTIME KIM Last Admin: 04/22/23 00:46 Dose: 25 mg Amitriptyline HCl (Amitriptyline Hcl 10 Mg Tablet) 10 mg PO BEDTIME PRN PRN Reason: Migraine Headache Hydroxyzine HCl (Hydroxyzine Hcl 50 Mg Tablet) 50 mg PO BEDTIME PRN PRN Reason: Sleep Sodium Chloride (Ns) 1,000 mls @ 100 mls/hr IVCONT .Q10H KIM Last Admin: 04/22/23 07:35 Dose: Not Given Piperacillin Sod/Tazobactam (Sod 3.375 gm/ Sodium Chloride) 50 mls @ 100 mls/hr IV Q6H [facility] Last Infusion: 04/22/23 10:48 Dose: Infused Vancomycin HCl 1,000 mg/ (Sodium Chloride) 270 mls @ 270 mls/hr IV Q12H [facility] Last Admin: 04/22/23 10:52 Dose: 270 mls/hr Ibuprofen (Ibuprofen 400 Mg Tablet) 400 mg PO Q6H PRN PRN Reason: Pain, Moderate(Pain Scale 4-6) Last Admin: 04/22/23 09:36 Dose: 400 mg Morphine Sulfate (Morphine Sulfate 2 Mg/Ml Cartridge) 2 mg IVPUSH Q4H PRN; Protocol PRN Reason: Pain, Severe (Pain Scale 7-10) Omeprazole (Omeprazole 40 Mg Capsule.) 40 mg PO ONCE [facility] Omeprazole (Omeprazole 20 Mg Capsule.) 20 mg PO DAILY@0630 [facility] Last Admin: 04/22/23 09:36 Dose: 20 mg Pharmacy Consult (Consult Rx Vancomycin Dosing) 1 each MISCELLANE DAILY PRN PRN Reason: Consult order Pregabalin (Pregabalin 100 Mg Capsule) 100 mg PO BID [facility] Last Admin: 04/22/23 09:36 Dose: 100 mg Sodium Chloride (0.9 % Sodium Chloride Flush 3 Ml Syringe) 3 ml IVFLUSH QSHIFT [facility] Last Admin: 04/22/23 07:21 Dose: Not Given Home Medications Medication Instructions Recorded Confirmed Last Taken Type amitriptyline 10 mg tablet 10 mg PO BEDTIME PRN Migraine 04/22/23 04/22/23 Unknown History Headache hydroxyzine pamoate 50 mg capsule 50 mg PO BEDTIME PRN Sleep 04/22/23 04/22/23 Unknown History pantoprazole 20 mg tablet,delayed 20 mg PO DAILY@0630 04/22/23 04/22/23 04/20/23 History release Physical Exam 2 Vital Signs: Vital Signs: Last Vital Signs Temp 98 F 04/22/23 06:53 Pulse 58 04/22/23 06:53 Resp 16 04/22/23 06:53 BP 100/60 04/22/23 06:53 Pulse Ox 97 04/22/23 06:53 O2 Del Method Room Air 04/22/23 06:53 BMI result Body Mass Index 25.8 Appearance: Alert. Oriented X3. No acute distress. Eyes: Pupils equal, round and reactive to light. ENT: Pharynx normal. Neck: Normal inspection. Neck supple. CVS: Normal heart rate and rhythm. Pulses normal. Respiratory: No respiratory distress. Breath sounds normal. Abdomen: Soft and nontender. Skin: Skin warm and dry. Normal skin color. Normal skin turgor. Extremities: No lower extremity edema. L hand moderate swelling erythema/warmth to dorsum of hand - will not range his fingers due to pain there is no swelling or erythema noted on the palm or palmar aspects of the finger - distal NV intact, erythema streaks to mid forearm, no crepitus or fluctuance felt Neuro: Oriented X 3. No motor deficit. No sensory deficit. Const: General: cooperative, healthy appearing and no acute distress Resp: Effort & Inspection: normal respiratory effort and able to speak in complete sentences Cardio: Rate: regular rate Peripheral pulses: Peripheral pulses 2+ throughout GI: Palpation (GI): Soft to palpation Skin: Lesions: no lesions Rashes: no rashes Extrem: Other: Left hand dorsal sided cellulitis. Laceration covered by eschar tissue over the dorsal side of the second metacarpal. No fluctuance or drainage. Able to flex and extend all digits with stiffness and pain. No tenderness to palpation along the flexor tendons. No evidence of flexor tenosynovitis. Sensation intact. Capillary refill is brisk. Results Labs 04/21/23 19:59 04/22/23 08:06 Labs: Abnormal lab results 04/21/23 Range/Units 19:59 Calcium 10.4 H D (8.4-10.2) mg/dL H & H 04/21/23 Range/Units 19:59 Hgb 14.8 (14.0-18.0) g/dl Hct 43.8 (42.0-52.0) % All other labs normal. Assessment and Plan (1) Hand pain: Qualifiers: Laterality: left Qualified Code(s): M79.642 - Pain in left hand Status: Acute (2) Cellulitis of hand, left: Status: Acute Continue IV abx Continue to monitor for improvement of symptoms X-rays reviewed and no foreign body is located over the cellulitic area or near laceration site -Foreign body incidental finding, index finger middle phalanx, unrelated to current injury Encourage gentle ROM Plan continue IV abx Continue to monitor for improvement of pain X-rays reviewed and no foreign body is located over the cellulitic area or near laceration site -Foreign body incidental finding, index finger middle phalanx, unrelated to current injury Encourage gentle ROM Procedures Date of Service Date of Service: 04/22/23
--- NOTE | 2023-04-22 11:33 | PM.EVENT ---
Event Note Date of Service: 04/22/23 Event Note: Patient was seen and evaluated this morning. Formal consult note to follow. Continue IV abx Continue to monitor for improvement of pain X-rays reviewed and no foreign body is located over the cellulitic area or near laceration site -Foreign body incidental finding, index finger middle phalanx, unrelated to current injury Encourage gentle ROM Time Spent With Patient Time: Total time managing care of this patient today ____ minutes.
--- NOTE | 2023-04-22 11:54 | MHC.CM.PN ---
PT REPORTS HE LIVES WITH HIS SON AND DAUGHTER AND IS INDEPENDENT WITH CARE HE HAS A NEBULIZER AND CPAP FOR DME HE HAS NO SERVICES PT DECLINES TO COMPLETE A HCP PCP: LOLI RAPHAEL DCP: HOME NO SERVICES VIA PRIVATE TRANSPORT
[2023-04-22] MEDS: Morphine Sulfate 2 MG/ML CARTRIDGE IVPUSH ×2 (12:13→16:43)
[2023-04-22 15:37] VITALS: BP 112/63; PULSE 76; RESP 16; TEMP 36.3; O2SAT 98
[2023-04-22 19:24] VITALS: BP 97/49; RESP 16; TEMP 37; O2SAT 96
[2023-04-23] MEDS: Morphine Sulfate 2 MG/ML CARTRIDGE IVPUSH ×2 (01:08→09:26)
[2023-04-23] MEDS: 0.9 % Sodium Chloride 1,000 ML 100 ML IVCONT (01:15)
[2023-04-23 03:18] VITALS: BP 98/56; PULSE 58; RESP 16; TEMP 36.8; O2SAT 93
[2023-04-23] MEDS: Piperacillin Sodium/Tazobactam 3.375 GM in 0.9 % Sodium Chloride 50 ML IV (05:51)
[2023-04-23] MEDS: Omeprazole 20 MG CAPSULE.DR PO (05:51)
[2023-04-23 07:32] VITALS: BP 110/54; PULSE 62; RESP 16; TEMP 36.6; O2SAT 96
[2023-04-23 08:35] LABS: Vancomycin Trough 11.9 mcg/mL (10.0-20.0)
[2023-04-23 08:50] LABS: Anion Gap 8 (12-20); Blood Urea Nitrogen 12 mg/dL (9-16); Calcium 8.3 mg/dL (8.4-10.2); Carbon Dioxide 25 mmol/L (22-29); Chloride 111 mmol/L (96-108); Creatinine Clr Calc Pharmacy 86.6; Estimated Glomerular Filt Rate > 60; Glucose Random 115 mg/dL (60-115); Potassium 3.8 mmol/L (3.3-5.1); Sodium 140 mmol/L (135-145)
[2023-04-23] MEDS: Pregabalin 100 MG CAPSULE PO (09:16)
[2023-04-23] MEDS: vancomycin HCL 1,000 MG in 0.9 % Sodium Chloride 250 ML 270 MG IV (09:16)
[2023-04-23 09:26] VITALS: RESP 18
--- NOTE | 2023-04-23 11:16 | PM.DS ---
DS: Providers Provider Date of Service: 04/23/23 Date of admission: 04/21/23 23:19 Primary care physician: Jaja Nelson MD Consults: 04/22/23 07:41 Consult to Orthopedics Routine Consulting Provider: [facility] [place] [facility] Reason for consultation: Hand infection w Foreign body , need of removal ? 04/22/23 10:21 Consult to Wound Care Routine Reason for consultation: cellulitis to left hand Has provider been notified: No DS: Diagnosis Discharge Diagnosis (1) Hand pain: Status: Acute (2) Cellulitis of hand, left: Status: Acute DS: Summary Hospital Course Hospital Course: Admission note HPI Ethan Valladares is a 52 years old man with past medical history significant for COPD-on home oxygen, GERD and multiple sclerosis presents to the emergency department complaining of left hand edema and pain after sustaining a deep abrasion while working with wood. 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 He noted that he has having swelling over the last couple of days. He denied any associated symptoms such as headache, fever, chills, dizziness or palpitations. He did not report any acute cardiopulmonary or genitourinary symptoms. The patient has underlying/chronic issues to the 3rd, 4th and 5th fingers including prior tendon injuries and trigger finger. Patient admits occasional use of cocaine. He denies tobacco smoking or alcohol abuse. In the ED, he was found to have normal vital signs. Blood workup included CBC and CMP are unremarkable. COVID-19 a and influenza tests are negative. He underwent a left hand x-ray that showed no acute fracture or subluxation. It did show a 2 mm radiodensity projecting over the soft tissue adjacent to the middle phalanx of the 2nd digit most suggestive of a foreign body; and chronic deformity of the distal phalanx of the 4th digit. ED tx: Zosyn 3.375 g IV, vancomycin 2 g IV and Tdap vaccination. According to ED case has been discussed with orthopedic surgery service, Pauline Goss. Recommended only antibiotics for now and felt patient needs no OR. Hospital course The patient was admitted for Left hand swelling and decrease range of motion as a result of cellulitis. Images were negative for any foreign body in the cellulitis area. Started on IV Antibiotics of Vancomycin and Zosyn with good response as swelling decrease and range of motion improved. He was evaluated by orthopedic team who recommended medical management. To be discharged on 1 more week of antibiotics. Continue Antibiotics as prescribed for 1 more week OXycodoe for pain Can use Advil as needed for inflammation and pain range of movement exercise as tolerated at home Follow with PCP as outpatient come back to ED for any worsening fever, edema or drainage Time Attestation Discharge coordination time: Greater than 30 minutes Quality: Safe Use of Opioids Does Pt have an Active Cancer Diagnosis on the Problem List?: No Quality: Stroke Does the patient have a stroke diagnosis?: No Physical Exam Vital Signs: Vital Signs: Last Vital Signs Temp 97.8 F 04/23/23 07:32 Pulse 62 04/23/23 07:32 Resp 18 04/23/23 09:26 BP 110/54 L 04/23/23 07:32 Pulse Ox 96 04/23/23 07:32 O2 Del Method Room Air 04/23/23 07:32 BMI result Body Mass Index 25.8 Const: Other: Constitutional : Awake, interactive, not in distress Neck : Normal inspection, Supple Cardiovascular : RRR, no JVP, no lower extremity edema Respiratory : good bilateral air entry, no crackles, wheezes or rhonchi Gastrointestinal: soft, lax, Normal bowel sounds, Non tender Skin : Warm, Dry, left hand with significantly decrease erythema and edema on the doral site of the hand, no tenderness, improved ROM of wrist and fingers, no drainage Neurological : Alert & oriented x3, No focal deficit , DS: Data Data Completed and Pending Labs on day of discharge: Laboratory Results - last 24 hr 04/23/23 08:04 Sodium 140 Potassium 3.8 Chloride 111 H Carbon Dioxide 25 Anion Gap 8 L BUN 12 Creatinine 1.02 Estim Creat Clear Calc 86.6 Estimated GFR > 60 Random Glucose 115 Calcium 8.3 L D Vancomycin Trough 11.9 Preliminary micro results at discharge 04/21/23 19:59 Blood Culture - Preliminary Blood - Venous No growth after 24 hours. 04/21/23 19:59 Blood Culture - Preliminary Blood - Venous No growth after 24 hours. Imaging XR : Radiologist's impression: ITS Impressions Hand X-Ray 04/21/23 19:19 IMPRESSION: No acute fracture or subluxation. 2 mm radiodensity projecting over the soft tissues adjacent to the middle phalanx of the second digit most suggestive of a foreign body. Chronic deformity of the distal phalanx of the fourth digit. Discharge Plan Discharge Anticipated Discharge Date/Time: 04/23/23 11:12 Patient Disposition: Home, Self-Care Discharge Diagnosis: Hand cellulitis Referrals: Jaja Serra MD [Primary Care Provider] - 1 Week Discharge Medications: New amoxicillin-pot clavulanate 875-125 mg tablet 1 tab PO BID Qty: 14 0RF doxycycline monohydrate 100 mg capsule 100 mg PO BID Qty: 14 0RF oxycodone 5 mg tablet 5 mg PO Q8H PRN (Reason: pain (scale score 7-10)) Qty: 14 0RF Rx Instructions: Partial Fill upon patient request. Continued pantoprazole 20 mg tablet,delayed release (DR/EC) 20 mg PO DAILY@0630 amitriptyline 10 mg tablet 10 mg PO BEDTIME PRN (Reason: Migraine Headache) hydroxyzine pamoate 50 mg capsule 50 mg PO BEDTIME PRN (Reason: Sleep) Discharge Orders: Discharge Order (Routine); Ordered 04/23/23 Ordered By: Alise Brown Diet: Advance to usual diet Activity on Discharge: As tolerated Stand Alone Forms: Patient Portal Discharge page Care Plan Goals: Read below Health Concerns: Read below Plan of Treatment: Read below Assessment: Continue Antibiotics as prescribed for 1 more week OXycodoe for pain Can use Advil as needed for inflammation and pain range of movement exercise as tolerated at home Follow with PCP as outpatient come back to ED for any worsening fever, edema or drainage
--- NOTE | 2023-04-23 12:18 | MHC.CM.PN ---
PT WILL DC HOME TODAY VIA PRIVATE TRANSPORT
--- NOTE | 2023-04-23 12:40 | P.PNOP_ITS ---
Subjective Subjective Date of Service: 04/23/23 Interval history: Patient resting comfortably sitting at EOB No overnight events Reports pain, erythema and edema has improved Pain is managed No additional complaints Physical Exam 2 Vital Signs: Vital Signs: Last Vital Signs Temp 97.8 F 04/23/23 07:32 Pulse 62 04/23/23 07:32 Resp 18 04/23/23 09:26 BP 110/54 L 04/23/23 07:32 Pulse Ox 96 04/23/23 07:32 O2 Del Method Room Air 04/23/23 07:32 BMI result Body Mass Index 25.8 Appearance: Alert. Oriented X3. No acute distress. Eyes: Pupils equal, round and reactive to light. ENT: Pharynx normal. Neck: Normal inspection. Neck supple. CVS: Normal heart rate and rhythm. Pulses normal. Respiratory: No respiratory distress. Breath sounds normal. Abdomen: Soft and nontender. Skin: Skin warm and dry. Normal skin color. Normal skin turgor. Extremities: No lower extremity edema. L hand moderate swelling erythema/warmth to dorsum of hand - will not range his fingers due to pain there is no swelling or erythema noted on the palm or palmar aspects of the finger - distal NV intact, erythema streaks to mid forearm, no crepitus or fluctuance felt Neuro: Oriented X 3. No motor deficit. No sensory deficit. Const: General: cooperative, healthy appearing and no acute distress Resp: Effort & Inspection: normal respiratory effort and able to speak in complete sentences Cardio: Rate: regular rate Peripheral pulses: Peripheral pulses 2+ throughout GI: Palpation (GI): Soft to palpation Skin: Lesions: no lesions Rashes: no rashes Extrem: Other: Left hand dorsal sided cellulitis. Laceration covered by eschar tissue over the dorsal side of the second metacarpal. No fluctuance or drainage. Able to flex and extend all digits with stiffness and pain. No tenderness to palpation along the flexor tendons. No evidence of flexor tenosynovitis. Sensation intact. Capillary refill is brisk. Procedures Date of Service Date of Service: 04/23/23 Progress Note: A&P Assessment and plan (1) Hand pain: Status: Acute (2) Cellulitis of hand, left: Status: Acute Assessment and Plan: Bedside I&D performed before discharge to allow any possibility of abscess formation to drain Continue PO abx on discharge F/u with orthopedics in 1 week for wound check Dispo - Discharging today Time Spent With Patient Time: Total time managing care of this patient today ____ minutes. Quality Stroke Does the patient have a stroke diagnosis?: No VTE Prior VTE?: No VTE Risk Level:: Medical - low VTE Device Contraindication: Treatment Not Indicated VTE Drug Contraindication: Treatment Not Indicated
--- NOTE | 2023-04-23 12:43 | P.PCNOP_ITS ---
Brief Operative Note Date of procedure: 04/23/23 Procedure: Bedside I&D left hand Anesthesia: none Battery Mechanic: Pauline Reyes Pathology: none sent Condition: stable Disposition: other (d/c today )
--- NOTE | 2023-05-09 08:56 | P.CDIM_ITS ---
PROVIDER RESPONSE TEXT: To clarify, the appropriate diagnosis supported by the clinical indicators: Skin, percutaneous QUERY TEXT: PHYSICIAN'S DOCUMENTATION REQUEST Date of Query: 05/03/2023 07:40 AM EST Patient Name: KENTRELL HANCOCK Admit Date: 04/22/2023 Dear Pauline Reyes, A review of the medical record indicates additional documentation may be needed. Please review below and update the documentation accordingly. Clinical Indicators: Per Orthopedic Procedure Note 04/23/23: Date of procedure: 04/23/23 Procedure: Bedside I&D left hand Anesthesia: none Pens And Pencils Dipper: Pauline Reyes Pathology: none sent Condition: stable Could you provide further clarification regarding the depth and approach of the I&D? Anatomical region, open Muscle, open Skin. open Subcutaneous tissue and fascia, open Anatomical region, percutaneous Muscle, percutaneous Skin, percutaneous Subcutaneous tissue and fascia, percutaneous Other (explain) Clinically unable to determine (explain) Thank you, Gerri Cruz RN Use of terms such as suspected, likely, concern for, or probable (associated with a specific diagnosi s that is being evaluated, monitored, or treated as if it exists) are acceptable and can be coded in the inpatient se tting, when documented at the time of discharge. Please use your independent medical judgment in providing your response. THIS QUERY IS PART OF THE PERMANENT MEDICAL RECORD
== END 2023-04-23 14:46 | disposition home or self-care (01) | DRG 383 ==
LOC: HO.ED 22:36 → HO.EDOVER 23:29 → HO.S3 04-22 01:13
PROVIDERS: Nurse Practitioner Family; Admitting Provider Internal Medicine; Emergency Provider Emergency Medicine; PCP Internal Medicine; Visit Provider Student in an Organized Health Care Education/Training Program
DX: L03.114 Cellulitis of left upper limb (principal); Z99.81 Dependence on supplemental oxygen; G35 Multiple sclerosis; J44.9 Chronic obstructive pulmonary disease, unspecified; M79.5 Residual foreign body in soft tissue; K21.9 Gastro-esophageal reflux disease without esophagitis; M79.7 Fibromyalgia; Z20.822 Contact with and (suspected) exposure to COVID-19; Z79.899 Other long term (current) drug therapy
CPT/HCPCS: 36415; 73120; 80048; 80053; 80202; 82565; 83605; 85025; 87040; 87502; 87635; 90715; 99285; J2270; J2543; J3370

== ENCOUNTER → 2023-04-21 23:19 | Outpatient (BNV) | payer OTHER, SELFPAY | PROVIDERS: Admitting Provider Internal Medicine; Emergency Provider Emergency Medicine; PCP Internal Medicine; Visit Provider Internal Medicine | DX: L03.114 Cellulitis of left upper limb (principal); M79.642 Pain in left hand | CPT/HCPCS: 99222; 99239; 99499 ==

== ENCOUNTER → 2023-04-21 23:19 | Outpatient (BNV) | payer OTHER, SELFPAY | PROVIDERS: Admitting Provider Internal Medicine; Emergency Provider Emergency Medicine; PCP Internal Medicine; Visit Provider Physician Assistant | DX: L03.114 Cellulitis of left upper limb (principal); M79.642 Pain in left hand | CPT/HCPCS: 10060; 99221; 99231; 99499 ==

== ENCOUNTER 2023-07-27 05:52 | Emergency (ER) | payer OTHER, SELFPAY ==
[2023-07-27] VITALS (8 sets, daily range): BP systolic 97–160; BP diastolic 58–110; PULSE 67–91; RESP 15–20; TEMP 36.3–36.5; O2SAT 98–100; BMI 26.6
--- NOTE | ~2023-07-27 | CT_ITS ---
EXAMINATION: CT HEAD W/O IV CONTRAST CT CERVICAL SPINE W/O IV CONTRAST CLINICAL INFORMATION: History of pain, syncope, head strike. COMPARISON: None TECHNIQUE: Head - Contiguous axial imaging of the head was performed from the skull base to the vertex without the administration of intravenous contrast, and axial images are reconstructed at 2 mm and 5 mm slice thickness. Cervical spine - A volumetric, helical CT acquisition of the cervical spine was obtained without contrast; in addition to the standard set of axial images, multiplanar reformatted images were provided in the coronal and sagittal imaging planes. This CT examination was performed using dose optimization techniques as appropriate, variously including the following: *Automated exposure control *Adjustment of mA and/or kV according to patient size (this includes techniques or standardized protocols for targeted exams where dose is matched to indication/reason for exam; i.e. extremities or head) *Use of iterative reconstruction technique DLP: 1136 mGy-cm (total) FINDINGS: HEAD: No acute intracranial findings. Josue to white matter differentiation is preserved. No evidence of intracranial hemorrhage, major vascular territory infarction, focal mass effect or midline shift. The ventricles have normal size and configuration. No hydrocephalus or extra-axial fluid collections. The calvarium is intact and the visualized paranasal sinuses, mastoid air cells and middle ear cavities are clear. The temporomandibular joints are intact. The orbits and globes are unremarkable. CERVICAL SPINE: The craniocervical junction is normal. The occipital condyles, dens and atlantodental articulation are intact. The vertebral body heights and alignment are maintained. No fractures in the anterior or posterior elements. No prevertebral soft tissue edema or soft tissue hematoma. Moderate left-sided facet arthropathy at C7-T1. Moderate degenerative loss of disc height and osteophyte formation at C5-C6. Also, mild discovertebral degenerative changes are present at C6-C7. The uncovertebral joints are hypertrophied at these levels and osteophytes moderately encroach on the left-sided neural foramen at C5-C6. Lung apices and thyroid gland are unremarkable. No pathologic sized lymph nodes in the visualized neck.. CT/CT cervical spine wo IV con IMPRESSION: * No intracranial hemorrhage or other acute intracranial pathology. * No fracture or malalignment in the cervical spine.
--- NOTE | 2023-07-27 06:35 | ED_ITS ---
HPI - Syncope General Chief Complaint: Syncope Stated Complaint: syncope Time Seen by Provider: 07/27/23 06:26 Source: patient and EMS Mode of arrival: EMS Limitations: no limitations History of Present Illness HPI narrative: 52 yo male with history of COPD, GERD, MS who presents to the ER from home via EMS for evaluation of a syncopal event. He states late last night, maybe 2 or 3am he was sitting on his daughter's bed when he started to feel hot. He states he had just smoked a joint of marijuana from a friend. He started sweating and when he got up he felt lightheaded. He walked to the kitchen, leaned on a door frame and doesn't remember what happened next. His daughter states he passed out, fell to the floor. He does not know if he hit his head. He reports left knee pain and right shoulder pain but he was ambulatory after the event. He did not have any chest pain or SOB at the time. He reports history of syncope in the past 2 or 3 times with years in between. MD complaint: loss of consciousness, felt faint and collapsed Onset (ago): hour(s) -: second(s) Description of event: post-event confusion Prodromal symptoms: lightheaded and diaphoresis Witnessed: Yes - by Bystander Context: standing up and illicit drug use Injuries sustained associated with event: RUE and LLE Current symptoms: back to baseline History: previous syncopal episode Treatments prior to arrival: none Related Data Home Medications ?Medication ?Instructions ?Recorded ?Confirmed amitriptyline 10 mg tablet 10 mg PO BEDTIME PRN Migraine 04/22/23 04/22/23 Headache hydroxyzine pamoate 50 mg capsule 50 mg PO BEDTIME PRN Sleep 04/22/23 04/22/23 pantoprazole 20 mg tablet,delayed 20 mg PO DAILY@0630 04/22/23 04/22/23 release Previous Rx's ?Medication ?Instructions ?Recorded amoxicillin 875 mg-potassium 1 tab PO BID #14 tabs 04/23/23 clavulanate 125 mg tablet doxycycline monohydrate 100 mg 100 mg PO BID #14 caps 04/23/23 capsule oxycodone 5 mg tablet 5 mg PO Q8H PRN pain (scale score 04/23/23 7-10) #14 tabs Allergies Allergy/AdvReac Type Severity Reaction Status Date / Time Shellfish Allergy Intermediate DIFFICULTY Uncoded 07/27/23 06:24 BREATHING Review of Systems 2 Review of Systems: Yes all other systems are reviewed and are negative [facility] Past Medical History Medical History Multiple sclerosis Fibromyalgia COPD (chronic obstructive pulmonary disease) Social History Social History Household Members Other:: children Housing: Apartment Unable to assess alcohol history related to: Unable to respond Alcohol intake: never Patient Tobacco Use Status: Never used Tobacco Smoked in Last 30 Days: No Use of substances other than those prescribed or required for medical reasons: Yes Substance Use Type: Marijuana Advance Directives: No service: No Physical Exam 2 Vital Signs: Vital Signs: Last Vital Signs Temp 97.4 F 07/27/23 09:20 Pulse 71 07/27/23 09:20 Resp 15 07/27/23 09:20 BP 117/86 07/27/23 09:20 Pulse Ox 98 07/27/23 09:20 O2 Del Method Room Air 07/27/23 09:20 BMI result Body Mass Index 26.6 Appearance: Alert. Oriented X3. No acute distress. Head: normocephalic, atraumatic. Eyes: Pupils equal, round and reactive to light. ENT: Pharynx normal. No tonsillar swelling or exudate. Neck: Normal inspection. Neck supple. CVS: Normal heart rate and rhythm. Pulses normal. Respiratory: No respiratory distress. Breath sounds normal. Abdomen: Soft and nontender. +BS x4 Skin: Skin warm and dry. Normal skin color. Normal skin turgor. No rashes. Extremities: No lower extremity edema. No joint swelling. surgical scars on bilateral hands. normal inspection left knee with normal ROM, nontender. right shoudler with normal ROM, nontender. Neuro/psych: Oriented X 3. No motor deficit. No sensory deficit. CN II-XII intact. Normal speech and cognition. Medications Administered Discontinued Medications Generic Name Dose Route Start Last Admin Trade Name Freq PRN Reason Stop Dose Admin Sodium Chloride 1,000 mls @ 999 mls/hr 07/27/23 06:45 07/27/23 08:07 Ns IVCONT 07/27/23 07:45 999 mls/hr .Q1H1M KIM Administration Medical Decision Making Medical Decision Making MDM Narrative: 52 yo male with history of COPD, MS, GERD presenting for evaluation of a syncopal event. Occurred after smoking marijuana. Denies other drug use. VSS On arrival and he feels back to baseline. doubt cardiac etiology given drug use prior. no evidence of dehydration. neurologically intact labs showing normal CBC, unremarkable labs, troponin is negative CT head/c-spine performed given collapse w/ head strike which was unremarkable. UTOX positive for cocaine which patient denied using. likely contributed to symptoms discussed abstaining from drugs. VS remain stable he feels well. stable for discharge home Differential Diagnosis Differential Diagnoses: The differential diagnosis associated with the presentation includes vasovagal syncope, orthostatic hypotension, dehydration, drug use, cardiac arrhythmia,seizure, hypoglycemia,TIA Admission/Observation Consideration of admission/observation: Escalation of care including admission/observation considered Lab Data [facility] Lab Attestation statement: I reviewed the patient's lab results. 07/27/23 08:04 07/27/23 08:04 Labs: Lab Results 07/27/23 Range/Units 08:04 WBC 7.7 (4.8-10.8) X10*3/uL RBC 4.84 (4.60-5.80) X10*6/uL Hgb 14.8 (14.0-18.0) g/dl Hct 42.5 (42.0-52.0) % MCV 87.8 (80.0-98.0) fL MCH 30.6 (27.0-33.0) pg MCHC 34.8 (31.0-36.0) g/dl RDW 12.5 (11.0-16.0) % Plt Count 228 (160-400) X10*3/uL MPV 10.2 (9.4-12.4) fL Immature Gran % (Auto) 0.4 (0.0-0.4) % Neut % (Auto) 81.8 H (45-73) % Lymph % (Auto) 11.4 L (20-40) % Rowan % (Auto) 5.6 (2-11) % Eos % (Auto) 0.3 (0-4) % Baso % (Auto) 0.5 (0-2) % Lymph # (Auto) 0.9 L (1.2-4.9) X10*3/uL Rowan # (Auto) 0.4 (0.1-1.2) X10*3/uL Eos # (Auto) 0.0 (0.0-0.4) X10*3/uL Baso # (Auto) 0.0 (0.0-0.2) X10*3/uL Abs Immat Gran (auto) 0.03 (0.00-0.03) X10*3/uL Absolute Neuts (auto) 6.3 (2.0-8.3) x10*3/uL Absolute Nucleated RBC 0.000 (0.0-0.012) X10*3/uL Nucleated RBC % (auto) 0.0 (0.0-0.2) /100WBC Sodium 140 (135-145) mmol/L Potassium 3.9 (3.3-5.1) mmol/L Chloride 107 (96-108) mmol/L Carbon Dioxide 27 (22-29) mmol/L Anion Gap 10 L (12-20) BUN 19 H (9-16) mg/dL Creatinine 0.85 (0.5-1.4) mg/dL Estim Creat Clear Calc 103.9 Estimated GFR > 60 Random Glucose 110 (60-115) mg/dL Calcium 9.7 D (8.4-10.2) mg/dL Magnesium 2.3 (1.6-2.6) mg/dL Total Bilirubin 0.8 (0.0-1.0) mg/dL Direct Bilirubin 0.3 (0.0-0.5) mg/dL AST 13 (5-37) U/L ALT 6 (0-40) U/L Alkaline Phosphatase 52 (39-117) U/L Troponin I High Sens < 2.7 (<3.5-35.0) ng/L Total Protein 6.9 (6.5-8.0) g/dL Albumin 4.3 (3.5-5.0) g/dL Urine Color Yellow Urine Appearance Clear Urine pH 6.0 (5.0-9.0) Ur Specific [place] 1.010 (1.005-1.025) Urine Protein Negative (Neg-Trace) mg/dL Urine Glucose (UA) Negative (Negative) mg/dL Urine Ketones Trace (Negative) mg/dL Urine Blood Negative (Negative) Urine Nitrite Negative (Negative) Ur Leukocyte Esterase Negative (Negative) Urine Opiates Screen Not Detected (Not Detect) Ur Buprenorphine Scrn Not Detected (Not Detect) ng/mL Ur Oxycodone Screen Not Detected (Not Detect) ng/mL Urine Methadone Screen Not Detected (Not Detect) ng/mL Urine Fentanyl Screen Not Detected (Not Detect) Ur Barbiturates Screen Not Detected (Not Detect) Ur Phencyclidine Scrn Not Detected (Not Detect) Ur Amphetamines Screen Not Detected (Not Detect) U Benzodiazepines Scrn Not Detected (Not Detect) Urine Cocaine Screen POSITIVE H (Not Detect) U Marijuana (THC) Screen POSITIVE H (Not Detect) Ethyl Alcohol < 10 mg/dL Independent Interpretation I performed an independent interpretation of an: EKG and CT Scan Interpretation: ct head without bleed or edema, no visible cervical fx, agree w/ radiology read ekg w/ normal sinus rhythm, HR 80, normal QTC, AL interval, no ST segment elevations or depressions Radiology Impression Discussion of test interpretation with radiology: I have reviewed the radiologist's reading. Radiologist Impression: CT/CT head/brain wo IV con IMPRESSION: * No intracranial hemorrhage or other acute intracranial pathology. * No fracture or malalignment in the cervical spine. Independent Historian Clinical information obtained from an independent historian. History obtained from or confirmed by: EMS External Record Review External record reviewed: Outpatient record, Prior outpatient labs and Prior outpatient radiology Chronic Conditions Patient?s care impacted by: Other (drug use, COPD) Critical Care Time Critical Care Time Critical Care Time: No Discharge Plan Discharge Clinical Impression: Syncope Qualifiers: Syncope type: unspecified Qualified Code(s): R55 - Syncope and collapse Patient Disposition: Home, Self-Care Instructions: Syncope (DC) Additional Instructions: Your imaging, EKG and lab workup were unremarkable. Your testing was positive for cocaine and marijuana. Drugs likely contributed to your passing out Follow up with your doctor If you develop new or worsening symptoms call 911 or come back to the ER for further evaluation. Prescriptions: No Action pantoprazole 20 mg tablet,delayed release (DR/EC) 20 mg PO DAILY@0630 amitriptyline 10 mg tablet 10 mg PO BEDTIME PRN (Reason: Migraine Headache) hydroxyzine pamoate 50 mg capsule 50 mg PO BEDTIME PRN (Reason: Sleep) amoxicillin-pot clavulanate 875-125 mg tablet 1 tab PO BID Qty: 14 0RF doxycycline monohydrate 100 mg capsule 100 mg PO BID Qty: 14 0RF oxycodone 5 mg tablet 5 mg PO Q8H PRN (Reason: pain (scale score 7-10)) Qty: 14 0RF Rx Instructions: Partial Fill upon patient request. Referrals: Jame Rai PA [Primary Care Provider] - Interventions: ED Discharge Assessment Last Done: 07/27/23 09:20 Discharge Date/Time: 07/27/23 09:20 Print Language: Russian
--- NOTE | 2023-07-27 06:42 | ECG_ITS ---
Test Reason : SYNCOPE Blood Pressure : / mmHG Vent. Rate : 074 BPM Atrial Rate : 074 BPM P-R Int : 144 ms QRS Dur : 084 ms QT Int : 382 ms P-R-T Axes : 068 055 036 degrees QTc Int : 424 ms Normal sinus rhythm Normal ECG When compared with ECG of 18-APR-2020 16:05, T wave amplitude has increased in Lateral leads Referred By: Becky Peraza Electronically Signed By:SELENE GONZALEZ
[2023-07-27] MEDS: 0.9 % Sodium Chloride 1,000 ML 999 ML IVCONT (08:07)
[2023-07-27 08:16] LABS: MANUAL DIFF FLAG NO
[2023-07-27 08:17] LABS: Appearance Urine Clear; Basophils Percent Auto 0.5 % (0-2); Color Urine Yellow; Eosinophils Percent Auto 0.3 % (0-4); Glucose Urine UA Negative (Negative); Hematocrit 42.5 % (42.0-52.0); Hemoglobin 14.8 g/dl (14.0-18.0); Imm Gran Abs Auto 0.03 X10*3/uL (0.00-0.03); Imm Gran Pct Auto 0.4 % (0.0-0.4); Leukocyte Esterase Urine Negative (Negative); Lymphocytes Absolute Auto 0.9 X10*3/uL (1.2-4.9); Lymphocytes Percent Auto 11.4 % (20-40); Mean Corpuscular HGB Conc 34.8 g/dl (31.0-36.0); Mean Corpuscular Hemoglobin 30.6 pg (27.0-33.0); Mean Corpuscular Volume 87.8 fL (80.0-98.0); Mean Platelet Volume 10.2 fL (9.4-12.4); Monocytes Absolute Auto 0.4 X10*3/uL (0.1-1.2); Monocytes Percent Auto 5.6 % (2-11); Neutrophils Absolute Auto 6.3 x10*3/uL (2.0-8.3); Neutrophils Percent Auto 81.8 % (45-73); Nitrite Urine Negative (Negative); Platelet Count 228 X10*3/uL (160-400); Red Blood Count 4.84 X10*6/uL (4.60-5.80); Red Cell Distribution Width 12.5 % (11.0-16.0); Urine Blood Negative (Negative); Urine Ketones Trace mg/dL (Negative); Urine Protein Negative (Neg-Trace); White Blood Count 7.7 X10*3/uL (4.8-10.8)
[2023-07-27 08:26] LABS: Amphetamine Screen Urine Not Detected (Not Detect); Barbiturates, Urine Not Detected (Not Detect); Benzodiazepines Screen Urine Not Detected (Not Detect); Buprenorphine Scr Not Detected (Not Detect); Cannabinoid Screen Urine POSITIVE (Not Detect); Cocaine Screen Urine POSITIVE (Not Detect); Fentanyl, urine Not Detected (Not Detect); Methadone Screen, Urine Not Detected (Not Detect); Opiate Screen Urine Not Detected (Not Detect); Oxycodone Screen Urine Not Detected (Not Detect); Phencyclidine Screen Urine Not Detected (Not Detect)
[2023-07-27 08:34] LABS: Alanine Aminotransferase 6 U/L (0-40); Albumin Level 4.3 g/dL (3.5-5.0); Alkaline Phosphatase 52 U/L (39-117); Anion Gap 10 (12-20); Aspartate Amino Transferase 13 U/L (5-37); Bilirubin Direct 0.3 mg/dL (0.0-0.5); Bilirubin Total 0.8 mg/dL (0.0-1.0); Blood Urea Nitrogen 19 mg/dL (9-16); Calcium 9.7 mg/dL (8.4-10.2); Carbon Dioxide 27 mmol/L (22-29); Chloride 107 mmol/L (96-108); Creatinine Clr Calc Pharmacy 103.9; Estimated Glomerular Filt Rate > 60; Ethanol < 10 mg/dL; Glucose Random 110 mg/dL (60-115); Magnesium 2.3 mg/dL (1.6-2.6); Potassium 3.9 mmol/L (3.3-5.1); Sodium 140 mmol/L (135-145); Total Protein 6.9 g/dL (6.5-8.0)
[2023-07-27 08:39] LABS: Troponin-I High Sensitivity < 2.7 ng/L (<3.5-35.0)
== END 2023-07-27 09:20 | disposition home or self-care (01) ==
PROVIDERS: Physician Assistant; Emergency Provider Emergency Medicine; PCP Physician Assistant Medical
DX: R55 Syncope and collapse (principal); J44.9 Chronic obstructive pulmonary disease, unspecified; G35 Multiple sclerosis
CPT/HCPCS: 36415; 70450; 72125; 80048; 80076; 80307; 81003; 83735; 84484; 85025; 93005; 99283; 99284; 99285

== ENCOUNTER → 2023-07-27 06:42 | Outpatient (BNV) | payer OTHER, SELFPAY | PROVIDERS: Emergency Provider Emergency Medicine; PCP Physician Assistant Medical; Visit Provider Internal Medicine | DX: R55 Syncope and collapse (principal) | CPT/HCPCS: 93010 ==

== ENCOUNTER 2023-10-12 05:11 | Emergency (ER) | payer OTHER, SELFPAY ==
[2023-10-12 05:16] VITALS: BP 127/84; BP 150/96; PULSE 108; PULSE 131; RESP 17; TEMP 37.2; O2SAT 93; O2SAT 96; BMI 25.1
--- NOTE | 2023-10-12 05:26 | PC.NURSE ---
pt biba from home, a&ox4, respirations even and unlabored. pt reports being in and out of a detox. pt reports relapsing, reports smoking 30$ worth of crack. pt requesting detox at this time. pt denies chest pain, n/v/d. pt calm and cooperative. pt changed over by security, belongings placed on maron.
--- NOTE | 2023-10-12 06:34 | ED.GENADULT ---
HPI - General Adult General Chief complaint: ETOH/Substance Use Stated complaint: substance abuse Time Seen by Provider: 10/12/23 06:33 Source: patient and EMS Mode of arrival: EMS Limitations: no limitations History of Present Illness ED Provider: Melia Lee PA-C HPI narrative: Patient is a 52 year old assigned male at with a history of substance use presenting to the emergency department today requesting detox from crack. Patient states that he has been using crack lately and wants to detox from it. Patient denies any dizziness, lightheadedness, abdominal pain, nausea, vomiting, fever, chills, blurry vision, double vision, loss of vision, chest pain, difficulty breathing, shortness of breath, back pain, night sweats, pain with urination, increased urinary frequency, increased urinary urgency, blood in his urine or stool, syncope or a near syncopal episode, recent trauma or falls, bowel incontinence, bladder incontinence, or any other complaints at this time. Relieving factors: none Exacerbating factors: none Associated symptoms: denies other symptoms Treatments prior to arrival: none Related Data Home Medications ?Medication ?Instructions ?Recorded ?Confirmed amitriptyline 10 mg tablet 10 mg PO BEDTIME PRN Migraine 04/22/23 04/22/23 Headache hydroxyzine pamoate 50 mg capsule 50 mg PO BEDTIME PRN Sleep 04/22/23 04/22/23 pantoprazole 20 mg tablet,delayed 20 mg PO DAILY@0630 04/22/23 04/22/23 release Previous Rx's ?Medication ?Instructions ?Recorded amoxicillin 875 mg-potassium 1 tab PO BID #14 tabs 04/23/23 clavulanate 125 mg tablet doxycycline monohydrate 100 mg 100 mg PO BID #14 caps 04/23/23 capsule oxycodone 5 mg tablet 5 mg PO Q8H PRN pain (scale score 04/23/23 7-10) #14 tabs Allergies Allergy/AdvReac Type Severity Reaction Status Date / Time Shellfish Allergy Intermediate DIFFICULTY Uncoded 10/12/23 05:18 BREATHING Review of Systems Constitutional: Constitutional: Reports no additional constitutional complaints, Denies chills, Denies fever(s) and Denies night sweats Eyes: Eyes: Reports no additional eye complaints, Denies blurry vision, Denies change in vision, Denies diplopia, Denies eye discharge, Denies loss of vision and Denies eye pain ENT: Denies dizziness Cardiovascular: Cardiovascular: Reports no additional cardiovascular complaints, Denies chest pain, Denies lightheadedness, Denies Loss of Consciousness and Denies dyspnea Respiratory: Respiratory: Reports no additional respiratory complaints and Denies dyspnea Gastrointestinal: Gastrointestinal: Reports no additional gastrointestinal complaints, Denies abdominal pain, Denies melena, Denies hematochezia, Denies change in bowel habits and Denies change in stool character Genitourinary: Genitourinary: Reports no additional male genitourinary complaints, Denies hematuria, Denies oliguria, Denies difficulty urinating, Denies dysuria, Denies urinary frequency, Denies urinary hesitancy, Denies urinary incontinence and Denies urinary urgency Musculoskeletal: Musculoskeletal: Reports no additional musculoskeletal complaints, Denies numbness and Denies tingling Neurologic: Denies dizziness, Denies loss of vision, Denies numbness and Denies tingling Psychiatric: Psychiatric: Reports no additional psychiatric complaints Endocrine: Endocrine: Reports no additional endocrine complaints Hematologic/Lymphatic: Hematologic/Lymphatic: Reports no additional hematologic/lymphatic complaints Allergic/Immunologic: Allergic/Immunologic: Reports no additional allergic/immunologic complaints [facility] Past Medical History Attestation statement: The following information was validated with the patient. Source: old records reviewed and nursing notes reviewed Medical History Multiple sclerosis Fibromyalgia COPD (chronic obstructive pulmonary disease) Social History Social History Household Members Other:: children Housing: Apartment Unable to assess alcohol history related to: Unable to respond Alcohol intake: current Alcohol intake frequency: holidays/special occasions only Patient Tobacco Use Status: Never used Tobacco Smoked in Last 30 Days: No Use of substances other than those prescribed or required for medical reasons: Yes Substance Use Type: Crack/Cocaine Advance Directives: No Advance Directives Information Provided: Yes Do you have a plan to hurt others: No Plan service: No Physical Exam ED Vital Signs: Vital Signs - 24 hr 10/12/23 05:16 10/12/23 07:51 10/12/23 09:46 Temperature 98.9 F 98.5 F 98.6 F Pulse Rate 108 H 74 83 Respiratory Rate 17 16 18 Blood Pressure 127/84 123/82 115/67 Pulse Oximetry 93 97 94 Oxygen Delivery Method Room Air Room Air Room Air 10/12/23 11:41 Temperature 98.6 F Pulse Rate 83 Respiratory Rate 18 Blood Pressure 115/67 Pulse Oximetry 94 Oxygen Delivery Method Room Air BMI result Body Mass Index 25.1 Const General: cooperative, no acute distress, alert and awake Nutritional Appearance: well nourished Orientation/consciousness: patient oriented x3 Limitations: no limitations HENMT Head: Yes normal to inspection and Yes atraumatic Ears: hearing grossly normal bilaterally and external ears normal General nose exam: Normal external nose present, no nasal discharge noted and no epistaxis Face and sinus: Yes normal facial exam, No abrasion and No laceration Mouth: Normal oral and palatal mucosa present, no drooling and no muffled voice Eyes General: appearance normal, both eyes and all related structures Periorbital: periorbital findings normal Eyelids: Yes eyelids normal Conjunctivae: conjunctivae normal Pupils: Equal, round and reactive pupils present EOM: EOMs intact bilaterally Neck Neck: Yes normal visual inspection, Yes full ROM and Yes no lymphadenopathy Chest Chest palpation & inspection: normal inspection of the chest Resp Effort & Inspection: normal respiratory effort and able to speak in complete sentences GI Inspection: Yes normal to inspection Neuro General: patient oriented x3 and moves all extremities Cranial nerves: Yes Equal, round and reactive pupils present Cognition (Neuro): normal cognition Extrem General: Yes normal to inspection, Yes full ROM and Yes capillary refill normal Psych Appearance: grossly normal Mental Status: mental status grossly normal Affect: normal affect Attitude: cooperative Thought process: Normal thought process present Thought content: Normal thought content present Insight: Good insight present (Psych) Medical Decision Making Medical Decision Making MDM Narrative: Patient is a 52 year old assigned male at with a history of crack use presenting to the emergency department today requesting detox. Patient's physical exam was unremarkable. Patient's urine confirmed cocaine use. Patient's EKG was unremarkable. I explained my physical exam findings as well as all test results to the patient. I answered all questions asked by the patient. Patient was evaluated by the CARE team who gave him resources for detox centers. I stressed the importance of the patient taking his medication as directed (either prescribed or as the over the counter packaging recommends). I stressed the importance of the patient following up with his primary care provider. I stressed the importance of the patient returning to the emergency department immediately if his symptoms were to worsen or if he were to develop any dizziness, shortness of breath, difficulty breathing, chest pain, blurry vision, loss of vision, nausea, vomiting, abdominal pain, fever, chills, back pain, or any other complaints. Patient verbalized agreement and understanding with this treatment plan and discharge. Differential Diagnosis Differential Diagnoses: The differential diagnosis associated with the presentation includes Crack use Cocaine use Polysubstance use Admission/Observation Consideration of admission/observation: Escalation of care including admission/observation considered Patient would have been admitted to the hospital had his work up had any findings where hospital admission was appropriate and his clinical presentation warranted hospital admission. Consult Healthcare Provider Management of the patient was discussed with: Behavioral Health Provider (spoke to the CARE team as noted in the MDM Rationale portion of this note.) Lab Data [facility] Lab Attestation statement: I reviewed the patient's lab results. My interpretation of these results are in the MDM Rationale portion of this note. Labs: Lab Results 10/12/23 Range/Units 09:48 Urine Opiates Screen Not Detected (Not Detect) Ur Buprenorphine Scrn Not Detected (Not Detect) ng/mL Ur Oxycodone Screen Not Detected (Not Detect) ng/mL Urine Methadone Screen Not Detected (Not Detect) ng/mL Urine Fentanyl Screen Not Detected (Not Detect) Ur Barbiturates Screen Not Detected (Not Detect) Ur Phencyclidine Scrn Not Detected (Not Detect) Ur Amphetamines Screen Not Detected (Not Detect) U Benzodiazepines Scrn Not Detected (Not Detect) Urine Cocaine Screen POSITIVE H (Not Detect) U Marijuana (THC) Screen POSITIVE H (Not Detect) Independent Historian Clinical information obtained from an independent historian. History obtained from or confirmed by: EMS (EMS provided additional history and confirmed the history provided by the patient.) Discharge Plan Discharge Clinical Impression: Substance use Patient Disposition: Home, Self-Care Instructions: Polysubstance Abuse (ED) Additional Instructions: Follow up with your primary care provider. Return to the emergency department immediately if your symptoms worsen or if you develop any dizziness, shortness of breath, difficulty breathing, chest pain, blurry vision, loss of vision, nausea, vomiting, abdominal pain, fever, chills, back pain, or any other complaints. Prescriptions: No Action pantoprazole 20 mg tablet,delayed release (DR/EC) 20 mg PO DAILY@0630 amitriptyline 10 mg tablet 10 mg PO BEDTIME PRN (Reason: Migraine Headache) hydroxyzine pamoate 50 mg capsule 50 mg PO BEDTIME PRN (Reason: Sleep) amoxicillin-pot clavulanate 875-125 mg tablet 1 tab PO BID Qty: 14 0RF doxycycline monohydrate 100 mg capsule 100 mg PO BID Qty: 14 0RF oxycodone 5 mg tablet 5 mg PO Q8H PRN (Reason: pain (scale score 7-10)) Qty: 14 0RF Rx Instructions: Partial Fill upon patient request. Referrals: Jame Rai PA [Primary Care Provider] - Interventions: ED Discharge Assessment Last Done: 10/12/23 11:41 Discharge Date/Time: 10/12/23 11:42 Print Language: Kazakh
--- NOTE | 2023-10-12 07:13 | ECG_ITS ---
Test Reason : CRACK USE Blood Pressure : / mmHG Vent. Rate : 072 BPM Atrial Rate : 072 BPM P-R Int : 138 ms QRS Dur : 086 ms QT Int : 394 ms P-R-T Axes : 053 048 026 degrees QTc Int : 431 ms Artifact in tracing Normal sinus rhythm Normal EKG When compared with ECG of 27-JUL-2023 07:01, No significant changes seen Referred By: Melia Lee Electronically Signed By:SELENE GONZALEZ
[2023-10-12 07:51] VITALS: BP 123/82; PULSE 74; RESP 16; TEMP 36.9; O2SAT 97
--- NOTE | 2023-10-12 07:52 | PC.NURSE ---
pt is alert and oriented, skin pwd, respirations even and unlabored, pt is very soft spoken but calm and cooperative, pt is reporting generalized pain which is chronic for him 12/18, pt states looking for detox used crack last night and uses alcohol sometimes - few shots last nigh, pt denies si/hi. vs stable pt set up with his breakfast gurjit
[2023-10-12 09:46] VITALS: BP 115/67; PULSE 83; RESP 18; TEMP 37; O2SAT 94
[2023-10-12 10:13] LABS: Amphetamine Screen Urine Not Detected (Not Detect); Barbiturates, Urine Not Detected (Not Detect); Benzodiazepines Screen Urine Not Detected (Not Detect); Buprenorphine Scr Not Detected (Not Detect); Cannabinoid Screen Urine POSITIVE (Not Detect); Cocaine Screen Urine POSITIVE (Not Detect); Fentanyl, urine Not Detected (Not Detect); Methadone Screen, Urine Not Detected (Not Detect); Opiate Screen Urine Not Detected (Not Detect); Oxycodone Screen Urine Not Detected (Not Detect); Phencyclidine Screen Urine Not Detected (Not Detect)
--- NOTE | 2023-10-12 11:24 | MHC.CARE ---
Met with Pt to discuss detox options. Pt was provided with a patient resource booklet with area detox phone numbers. Also provided with a pamphlet for [facility] for [place] (unsure if this is open today due to holiday). Pt plans to contact area detox's for availability.
[2023-10-12 11:41] VITALS: BP 115/67; PULSE 83; RESP 18; TEMP 37; O2SAT 94
== END 2023-10-12 11:42 | disposition home or self-care (01) ==
PROVIDERS: Physician Assistant Medical; Emergency Provider Emergency Medicine; PCP Physician Assistant Medical
DX: F14.19 Cocaine abuse with unspecified cocaine-induced disorder (principal); F12.10 Cannabis abuse, uncomplicated; Z71.51 Drug abuse counseling and surveillance of drug abuser; Z79.899 Other long term (current) drug therapy
CPT/HCPCS: 80307; 93005; 99285

== ENCOUNTER → 2023-10-12 07:13 | Outpatient (BNV) | payer OTHER, SELFPAY | PROVIDERS: Emergency Provider Emergency Medicine; PCP Physician Assistant Medical; Visit Provider Internal Medicine | DX: F14.90 Cocaine use, unspecified, uncomplicated (principal) | CPT/HCPCS: 93010 ==

== ENCOUNTER 2024-06-15 14:26 | Emergency (ER) | payer OTHER, SELFPAY ==
--- NOTE | ~2024-06-15 | XR_ITS ---
CLINICAL HISTORY: fall on ice, back pain 3 views thoracic spine Comparison: None Findings: The vertebral body heights are preserved. Intervertebral disc spaces are maintained. No fractures are present. Pedicles intact. Paraspinal lines are normal. Normal Thoracic kyphosis. Normal bone mineralization. Impression: 1. No compression fractures or listhesis. This document has been electronically signed by: Deandre Sen MD on 06/15/2024 15:26:47
--- NOTE | ~2024-06-15 | XR_ITS ---
CLINICAL HISTORY: posterior right rib pain s p fall Right rib series with PA chest Comparison: CR - XR CHEST 1V - 04/18/20 14:55 EST CR - CHEST 2 VIEWS [id number] - 12/23/07 07:43 EDT Findings: Normal cardiomediastinal silhouette. Lungs are well expanded and clear. No pneumothorax or pleural effusions. No rib fractures. No osteoblastic or osteolytic lesions. Impression: 1. Normal chest with right rib series. This document has been electronically signed by: Deandre Sen MD on 06/15/2024 15:26:28
[2024-06-15 14:31] VITALS: BP 138/75; PULSE 82; RESP 22; TEMP 36.4; O2SAT 97; BMI 26.5
--- NOTE | 2024-06-15 14:33 | ED_ITS ---
HPI - General Adult General Chief complaint: Fall Stated complaint: fall Time Seen by Provider: 06/15/24 15:16 Source: patient Mode of arrival: ambulatory Limitations: no limitations History of Present Illness ED Provider: Kristen Metzger NP HPI narrative: Patient is a 53-year-old male who presents emergency department for evaluation. He reports a mechanical slip and fall 1 week ago landing onto his right side. He was initially seen at [facility] ER had an x-ray obtained of his elbow at that time which was negative for fracture. However he continues to have pain to an area in his right posterior back he is able to point to the area with 1-2 fingers. It is exacerbated with cough, deep breathing, and sneezing. Denies nausea, vomiting, abdominal pain. Denies anterior chest pain. No shortness of breath. Related Data Home Medications ?Medication ?Instructions ?Recorded ?Confirmed amitriptyline 10 mg tablet 10 mg PO BEDTIME PRN Migraine 04/22/23 04/22/23 Headache hydroxyzine pamoate 50 mg capsule 50 mg PO BEDTIME PRN Sleep 04/22/23 04/22/23 pantoprazole 20 mg tablet,delayed 20 mg PO DAILY@0630 04/22/23 04/22/23 release Previous Rx's ?Medication ?Instructions ?Recorded amoxicillin 875 mg-potassium 1 tab PO BID #14 tabs 04/23/23 clavulanate 125 mg tablet doxycycline monohydrate 100 mg 100 mg PO BID #14 caps 04/23/23 capsule oxycodone 5 mg tablet 5 mg PO Q8H PRN pain (scale score 04/23/23 7-10) #14 tabs lidocaine 5 % topical patch 1 patch topical DAILY #15 ea 06/15/24 naproxen 500 mg tablet 500 mg PO BID PRN pain #20 tabs 06/15/24 Allergies Allergy/AdvReac Type Severity Reaction Status Date / Time Shellfish Allergy Intermediate DIFFICULTY Uncoded 06/15/24 14:33 BREATHING Review of Systems Review of Systems: Yes all other systems are reviewed and are negative PMFSH Past Medical History Attestation statement: The following information was validated with the patient. Source: old records reviewed Medical History Substance abuse in remission Multiple sclerosis Fibromyalgia COPD (chronic obstructive pulmonary disease) Social History Social History Household Members Other:: children Housing: Apartment Unable to assess alcohol history related to: Unable to respond Alcohol intake: current Alcohol intake frequency: holidays/special occasions only Patient Tobacco Use Status: Never used Tobacco Smoked in Last 30 Days: No Use of substances other than those prescribed or required for medical reasons: No Substance Use Type: Former Substance User Advance Directives: No Advance Directives Information Provided: No service: No Physical Exam ED Vital Signs: Vital Signs - 24 hr 06/15/24 14:31 Temperature 97.6 F Pulse Rate 82 Respiratory Rate 22 H Blood Pressure 138/75 Pulse Oximetry 97 Oxygen Delivery Method Room Air BMI result Body Mass Index 26.5 Appearance: Alert.?Oriented to person, place and time. No acute distress.?Normal affect. Eyes: Pupils equal, round and reactive to light.? ENT: Pharynx normal.?? Neck: Normal inspection.? Neck supple.?? CVS: Heart sounds normal. Normal heart rate and rhythm.? Pulses normal.?? Respiratory: No respiratory distress.? Lung sounds clear to auscultation bilaterally. No crepitus or palpable deformity to the right posterior rib, has point tenderness along 11th and 12th rib posteriorly just medial to the thoracic spine Abdomen: Soft and non-tender. Normoactive bowel sounds. ? Skin: Skin warm and dry.? Normal skin color.? Extremities: No lower extremity edema.? Neuro: Moves all extremities spontaneously. Sensation intact bilaterally. Ambulates with normal steady gait. Course Course Course Narrative: This is a Rapid Medical Examination (RME) performed by Marifer Johns PA-C in triage. Full HPI, ROS, assessment and treatment plan per primary provider in the Main ED. 53 yo male here for eval of right postrior rib/ back pain s/p slip and fall on ice 1 week ago. reports landing on a step on his right side. impact to right elbow. no head strike or loc. had xrays of elbow at [facility] which were negative for fx. has had progressively worsening right posterior rib pain/ back pain. evaluated at PCP - no xrays done. now having pain on deep breathing + continued pain. Plan: xrs Medications Administered Discontinued Medications Generic Name Dose Route Start Last Admin Trade Name Freq PRN Reason Stop Dose Admin Ketorolac Tromethamine 15 mg 03/08/25 15:56 06/15/24 16:17 Ketorolac Tromethamine 15 Mg/Ml Vial IM 06/15/24 15:57 15 mg ONCE ONE Administration Lidocaine 1 patch 06/15/24 15:56 06/15/24 16:18 Lidocaine 4 % Patch Adh..Patch TRANSDERMA 06/15/24 15:57 1 patch ONCE ONE Administration Protocol Medical Decision Making Medical Decision Making MDM Narrative: patient is a 53-year-old male with past medical history of multiple sclerosis, fibromyalgia, COPD, substance use disorder in remission who presents emergency department for evaluation of right posterior chest wall pain s/p fall 1 week ago, not improving. Has used Tylenol on a couple of occasions without much improvement. XR of the ribs and thoracic spine were obtained prior to my assum ption of care and are without acute osseous abnormality. He has point tenderness along the posterior 11th and 12th rib on the right medial to the thoracic vertebrae, mid scapular line without crepitus or obvious deformity. Reviewed rib fracture versus rib contusion, reviewed with patient potential for obtaining CT imaging to definitively exclude rib fracture he will ever declines. Regardless this would not change symptomatic treatment at this point. He has not yet trialed NSAID, will trial Toradol in addition to Lidoderm patch and reassess. Differential Diagnosis Differential Diagnoses: The differential diagnosis associated with the presentation includes ( Rib contusion, rib fracture, lower suspicion for PNA an no evidence on CXR, no URI symptoms.) Independent Interpretation I performed an independent interpretation of an: Plain X-Ray ( No acute fracture) Radiology Impression Discussion of test interpretation with radiology: I have reviewed the radiologist's reading. Radiologist Impression: 3 views thoracic spine Comparison: None Findings: The vertebral body heights are preserved. Intervertebral disc spaces are maintained. No fractures are present. Pedicles intact. Paraspinal lines are normal. Normal Thoracic kyphosis. Normal bone mineralization. Impression: 1. No compression fractures or listhesis. Right rib series with PA chest Comparison: CR - XR CHEST 1V - 04/18/20 14:55 EST CR - CHEST 2 VIEWS [id number] - 12/23/07 07:43 EDT Findings: Normal cardiomediastinal silhouette. Lungs are well expanded and clear. No pneumothorax or pleural effusions. No rib fractures. No osteoblastic or osteolytic lesions. Impression: 1. Normal chest with right rib series. External Record Review External record reviewed: Outpatient record Prescription Management I considered prescription management with: Pain Medication Discharge Plan Discharge Clinical Impression: Rib contusion Qualifiers: Encounter type: initial encounter Laterality: right Qualified Code(s): S20.211A - Contusion of right front wall of thorax, initial encounter Patient Disposition: Home, Self-Care Instructions: Rib Contusion (ED) Additional Instructions: Be sure to get rest, apply ice/heat for 10-15 minutes 3-4 times daily. Consider bracing the chest /area of pain up against the back of a chair, with a pillow, with the use of your arm during episodes of coughing or sneezing as this may help to decrease the pain. Take naproxen 500 mg twice daily as needed for pain. Do not take additional [id number]-[id number] NSAIDs such as ibuprofen /Advil /Motrin, or Aleve while taking this medication. Apply Lidoderm patch to area of pain leave on for 12 hours and remove for a total of 12 hours to prevent skin irritation. Follow-up with primary care doctor. Return with new or worsening symptoms or concerns. Prescriptions: New naproxen 500 mg tablet 500 mg PO BID PRN (Reason: pain) Qty: 20 0RF lidocaine 5 % adhesive patch,medicated 1 patch topical DAILY Qty: 15 0RF Rx Instructions: leave on most painful area for up to 12 hrs No Action pantoprazole 20 mg tablet,delayed release (DR/EC) 20 mg PO DAILY@0630 amitriptyline 10 mg tablet 10 mg PO BEDTIME PRN (Reason: Migraine Headache) hydroxyzine pamoate 50 mg capsule 50 mg PO BEDTIME PRN (Reason: Sleep) amoxicillin-pot clavulanate 875-125 mg tablet 1 tab PO BID Qty: 14 0RF doxycycline monohydrate 100 mg capsule 100 mg PO BID Qty: 14 0RF oxycodone 5 mg tablet 5 mg PO Q8H PRN (Reason: pain (scale score 7-10)) Qty: 14 0RF Rx Instructions: Partial Fill upon patient request. Referrals: Jame Rai PA [Primary Care Provider] - Print Language: Nepali
--- NOTE | 2024-06-15 15:21 | PC.NURSE ---
patient a&ox3, c/o back pain 01/17 with any movement, states it takes him alot to be able to stand up and ambulate. call [facility] within reach, pt awaiting provider
--- OUTSIDE RECORDS SUMMARY | 2024-06-15 15:28 | XMS_ITS | Clinical Summary ---
Author Organization [facility] Address [address] [place] [address] Care Team Providers Care Try On Baster Name Role Phone Unavailable Primary Care Provider Unavailabl e Source Comments PLEASE NOTE, if this patient is a minor, it may be UNLAWFUL to discuss sensitive information that is contained in these records (such as FAMILY PLANNING, MENTAL HEALTH or SUBSTANCE ABUSE) with the minor patient's parent or other person without the patient's specific authorization.[facility] Social History Tobacco Use Types Packs/Day Years Used Date Smoking Tobacco: Never Assessed Social Connections Answer Date Recorded Social Connections and Isolation 0 06/11/2021 Financial Resource Strain Answer Date R ecorded Financial Resource Strain 0 2021 Stress Answer Date Recorded Stress 0 06/11/2021 Physical Activity Answer Date Recorded Physical Activity 0 06/11/2021 Food Insecurity Answer Date Recorded Food 0 06/11/2021 Transportation Needs Answer Date Record ed Transportation 0 06/11/2021 Housing Stability Answer Date Recorded Housing 0 06/11/2021 Safety and Environment Answer Date David rded Safety 0 06/11/2021 Utilities Answer Date Recorded Utilities 0 06/11/2021 Employment Answer Date Recorded Employment 0 06/11/2021 Sex and Gender Information Value Date Recorded Sex Assigned at Not on file Legal Sex Male 1:20 PM PDT Gender Identity Not on file Sexual Orientation Not on file Plan of Treatment Not on file Insurance [facility] NET DENTAL
--- OUTSIDE RECORDS SUMMARY | 2024-06-15 15:28 | XMS_ITS | Clinical Summary ---
Author Organization [facility] Address [address] [place] [address] Care Team Providers Care Fresh Foods Clerk Name Role Phone Savannah Weber DO Primary Care Pro vider Surgical History Surgery Date Site/Laterality Comments HERNIA REPAIR PROCEDURE: REPAIR INGUINAL HERNIA Medical History Medical History Date Comments Asthma DX:Asthma GERD (gastroesophageal reflux disease) DX:GERD (gastroesophageal reflux disease) Substance abuse (CMS/HCC) DX:Sub stance abuse (HCC); COMMENT: h/o cocaine in past Family History Medical History Relation Name Comments Other: COPD Father Heart attack Mother copd CABG Sister 1 age 30, COPD Diabetes Uncle Relation Name Status Comments Father Mother Sister 1 Sister 2 Uncle Social History Tobacco Use Types Packs/Day Years Used Date Smoking Tobacco: Never Alcohol Use Standard Drinks/Week Comments No 0 (1 standard drink = 0.6 oz pur e alcohol) Sex and Gender Information Value Date Recorded Sex Assigned at Not on file Legal Sex Male 11:48 AM EST Gender Identity Not on file Sexual Orientation Not on file Obstetrics History Plan of Treatment Health Maintenance Due Date Last Done Comments Hepatitis B Vaccines (1 of 3 - 19+ 3-dose series) 10/26/1991 DTaP,Tdap,and Td Vaccines (2 - Td or Tdap) 09/09/2015 09/08/2005 Pneumococcal Vaccine: 50+ Years (1 of 1 - PCV) 2022 Zoster Vaccines (1 of 2) 2022 COVID-19 Vaccine (1 - 2023-2 5 season) 2023 Influenza Vaccine (#1) 2023 9, 12/31/2007 HIB Vaccines Aged Out No longer eligi ble based on patient's age to complete this topic HPV Vaccines Aged Out No longer eligi ble based on patient's age to complete this topic Hepatitis A Vaccines Aged Out No long er eligible based on patient's age to complete this topic IPV Vaccines Aged Out No longer eligi ble based on patient's age to complete this topic MMR Vaccines Aged Out No longer eligi ble based on patient's age to complete this topic Meningococcal ACWY Vaccine Aged Out N o longer eligible based on patient's age to complete this topic Meningococcal B Vacine Aged Out No lo nger eligible based on patient's age to complete this topic Pneumococcal Vaccine: Pediatrics (0 to 5 Years) and At-Risk Patients (6 to 64 Years) Aged Out No longer eligible b ased on patient's age to complete this topic RSV Immunization Patients Under 20 months Aged Out No longer eligible b ased on patient's age to complete this topic Varicella Vaccines Aged Out No longer eligible based on patient's age to complete this topic Care Teams Fresh Foods Clerk Relationship Specialty Start Date End Date Savannah Weber DO PCP - General Internal Medicine 05/20/14
--- OUTSIDE RECORDS SUMMARY | 2024-06-15 15:28 | XMS_ITS | Clinical Summary ---
Author Organization [facility] Address [address] [place] [address] Care Team Providers Care Family Consultant Name Role Phone Unavailable Primary Care Provider Unavailabl e Allergies No known active allergies Medications Medication Sig Dispensed Refills Start Date End Date Status albuterol (PROVENTIL HFA;VENTOLIN HFA) 108 (90 BASE) MCG/ACT inhaler Inhale 2 puffs into the lungs every 6 (six) hours as needed for wheezing. 0 Active traMADol (ULTRAM) 50 MG tablet 1-2 po q 6 hrs prn pain 20 tablet 0 01/18/2015 Active Social History Tobacco Use Types Packs/Day Years Used Date Smoking Tobacco: Never Alcohol Use Standard Drinks/Week Comments Yes 0 (1 standard drink = 0.6 oz pur e alcohol) Sex and Gender Information Value Date Recorded Sex Assigned at Not on file Gender Identity Not on file Sexual Orientation Not on file Last Filed Vital Signs Vital Sign Reading Time Taken Comments Blood Pressure 113/68 01/18/2015 2:14 PM EDT Pulse 79 01/18/2015 2:14 PM EDT Temperature 36.6 ??C (97.8 ??F) 01/18/2015 2:14 PM ED T Respiratory Rate 20 01/18/2015 2:14 PM EDT Oxygen Saturation 97% 01/18/2015 2:14 PM EDT Inhaled Oxygen Concentration - - Weight - - Height - - Body Mass Index - - Plan of Treatment Health Maintenance Due Date Last Done Comments Hepatitis B Vaccines (1 of 3 - 3-dose series) 1972 Hepatitis C Screening 1972 COVID-19 Vaccine (#1) 04/27/1973 Depression Screening 1984 Preventative Health Evaluation 1990 DTap / Tdap / Td (1 - Tdap) 10/26/1991 Colon Cancer Screening (Colonoscopy) 2017 Shingrix-Zoster Vaccine (1 of 2) 2022 Influenza Vaccine (#1) 2023 Pneumococcal Vaccine Aged Out No long er eligible based on patient's age to complete this topic RSV Ped < 20 months Aged Out No longe r eligible based on patient's age to complete this topic
--- OUTSIDE RECORDS SUMMARY | 2024-06-15 15:28 | XMS_ITS | Patient Health Record ---
Author Organization [facility], Address [address] [place] [address] Support Name Relationship Address Phone [employer] Emergency Contact Aury Nunez [place], [place] [id number] Ethan Valladares Guarantor Unknown Unavailable Reason For Referral No Information Medications Medication SIG (Take, Route, Fr equency, Duration) Notes Start Date End Date Status Amitriptyline HCl 10mg qd Ac tive Cymbalta Active Protonix 40mg qd Active CeleBREX 60mg qd Active Social History Tobacco Use: Social History Observation Description Date Details (start date - stop date) Never Smoker NA - NA Tobacco Use/Smoking Question Answer Notes Are you a nonsmoker Problems Problem Type SNOMED Code ICD Code Onset Dates Problem Status W/U Status Risk Notes Problem Gastro-esophagea l reflux disease without esophagitis (179454098) Gastro-esophage al reflux disease without esophagitis (K21.9) Active confirmed Plan Of Treatment No Information Insurance Providers Payer Name Payer Address Payer Phone Subscriber Number Group Number Insured Name Patient Relationship to Insured Coverage Start Date Coverage End Date [employer] of [place] [address] [place] [address] [id number] Ethan Valladares Self - patient is the insured Medical (General) History Medical History History ICD Code ?diabetes Surgical History Surgery Date(Month/Year) Umbilical Hernia Facial Ear Surgery and Head Surgery
[2024-06-15] MEDS: Ketorolac Tromethamine 15 MG/ML VIAL IM (16:17)
[2024-06-15] MEDS: Lidocaine 4 % Patch ADH..PATCH 1 PATCH TRANSDERMA (16:18)
[2024-06-15 17:55] VITALS: BP 138/75; PULSE 82; RESP 18; TEMP 36.4; O2SAT 97
== END 2024-06-15 17:56 | disposition home or self-care (01) ==
PROVIDERS: Emergency Provider Emergency Medicine Emergency Medical Services; PCP Physician Assistant Medical
DX: S20.211A Contusion of right front wall of thorax, initial encounter (principal); W00.1XXA Fall from stairs and steps due to ice and snow, initial encounter; M54.6 Pain in thoracic spine; Y93.89 Activity, other specified; Y92.9 Unspecified place or not applicable; Y99.9 Unspecified external cause status
CPT/HCPCS: 71101; 72072; 96372; 99284; J1885

== ENCOUNTER → 2024-06-15 14:34 | Outpatient (BNV) | payer OTHER, SELFPAY | PROVIDERS: PCP Physician Assistant Medical; Visit Provider Radiology Diagnostic Radiology | DX: R07.81 Pleurodynia (principal); M54.50 Low back pain, unspecified; W19.XXXA Unspecified fall, initial encounter | CPT/HCPCS: 71101; 72072 ==